=== PATIENT | female | born 1950 | race Asian ===

== ENCOUNTER 2017-05-19 06:44 | Day surgery (SDC) | payer OTHER ==
[2017-05-18 18:15] VITALS: BMI 25.3
[~2017-05-19 06:44] MED LIST: ACETAMINOPHEN 325 MG TABLET (FP) PO PRN; CIPROFLOXACIN HCL 0.3% OPHTH 2.5ML BOTTLE OP SCH; CYCLOPENTOLATE HCL 1% OPHTH SOLN 2 ML BOTTLE OP SCH; FLURBIPROFEN 0.03% OPHTH SOLN 2.5 ML BOTTLE OP SCH; PHENYLEPHRINE 2.5% OPHTH SOLN 15 ML BOTTLE OP SCH; TROPICAMIDE 1% OPHTH SOLN 15 ML BOTTLE OP SCH
[2017-05-19] MEDS ORDERED: PHENYLEPHRINE 2.5% OPHTH SOLN 15 ML BOTTLE OD ONE ×3 (06:55→07:05)
[2017-05-19] MEDS ORDERED: CYCLOPENTOLATE HCL 1% OPHTH SOLN 2 ML BOTTLE OD ONE ×3 (06:55→07:05)
[2017-05-19] MEDS ORDERED: FLURBIPROFEN 0.03% OPHTH SOLN 2.5 ML BOTTLE OD ONE ×3 (06:55→07:05)
[2017-05-19] MEDS ORDERED: TROPICAMIDE 1% OPHTH SOLN 15 ML BOTTLE OD ONE ×3 (06:55→07:05)
[2017-05-19] MEDS ORDERED: CIPROFLOXACIN HCL 0.3% OPHTH 2.5ML BOTTLE OD ONE ×3 (06:55→07:05)
[2017-05-19 07:00] VITALS: TEMP 97.5
[2017-05-19] MEDS ORDERED: EPINEPHrine/PF 1 MG/1 ML (1:1,000) AMPULE ONE (07:40)
[2017-05-19] MEDS ORDERED: VANCOMYCIN 500 MG VIAL (RESTRICTED TO ID ONLY) ONE (07:40)
[2017-05-19] MEDS ORDERED: LIDOCAINE HCL/PF 1% SDV 5ML VIAL ONE (07:41)
[2017-05-19] MEDS ORDERED: BSS (NA/CA/MG/K) BALANCED SALT SOLUTION OPHTH SOLN 15 ML BOTTLE ONE (07:41)
[2017-05-19] MEDS ORDERED: TETRACAINE 0.5% OPHTH SOLN 2 ML BOTTLE ONE (07:41)
[2017-05-19] MEDS ORDERED: WATER FOR INJ,STERILE 10 ML ONE (07:41)
[2017-05-19] MEDS ORDERED: POVIDONE-IODINE 5% OPHTHALMIC PREP 30 ML SOLUTION ONE (07:42)
[2017-05-19] MEDS ORDERED: MIDAZOLAM HCL 2 MG/2 ML SINGLE DOSE VIAL ONE (08:14)
[2017-05-19] MEDS ORDERED: TETRACAINE 0.5% OPHTH SOLN 2 ML BOTTLE OD ONE (08:17)
[2017-05-19] MEDS ORDERED: POVIDONE-IODINE 5% OPHTHALMIC PREP 30 ML SOLUTION OD ONE (08:20)
[2017-05-19] MEDS ORDERED: CHONDROITIN SU A/HYALUR SOD 1 KIT IO ONE (08:33)
[2017-05-19] MEDS ORDERED: LIDOCAINE HCL 1% PRESERVATIVE FREE - 30ML VIAL IO ONE (08:33)
[2017-05-19] MEDS ORDERED: BSS (NA/CA/MG/K) BALANCED SALT SOLUTION OPHTH SOLN 15 ML BOTTLE OD ONE (08:33)
[2017-05-19] MEDS ORDERED: EPINEPHrine/PF 1 MG/1 ML (1:1,000) AMPULE IO ONE (08:38)
[2017-05-19 12:26] VITALS: BP 170/79; PULSE 60
--- NOTE | 2017-05-19 17:08 | SPEC ---
DATE OF OPERATION: OPERATION: Phacoemulsification with posterior chamber intraocular lens implantation, right eye. Lens used SN60WF, 23.5 Diopter power, Serial No. [id number]. PREOPERATIVE DIAGNOSIS: Cataract, right eye. POSTOPERATIVE DIAGNOSIS: Cataract, right eye. SURGEON: Getachew Harrell M.D. ANESTHESIA: Topical MAC. COMPLICATIONS: None. PROCEDURE: The patient was brought to the operating room and correctly identified along with the operative site and the correct intraocular lens gupta. The patient was then prepped and draped in the usual sterile fashion including 5% Betadine solution in the conjunctival sac and an eyelid drape. An eyelid speculum was then placed in the eye. A paracentesis port was created and approximately 0.5 mL of preservative free Lidocaine was then injected into the eye. Viscoelastic was then injected to inflate the anterior chamber. A temporal clear corneal wound was created. A continuous circular capsulorrhexis was performed. The nucleus was then hydrodissected with BSS and removed with phacoemulsification. The remaining cortical material was irrigated and aspirated. Viscoelastic was injected to inflate the capsular bag and the intraocular lens was then implanted into the capsular bag. The remaining Viscoelastic was irrigated and aspirated from the eye. The IOL was noted to be well centered and completely covered by the anterior capsulorrhexis. Topical vancomycin was placed and the eye patched and shielded. All wounds were tested and found to be watertight. No suture was placed. The eye was then shielded. The patient was then discharged from the operating room in stable condition. Concepción [id number]
== END 2017-05-19 10:10 | disposition home or self-care (01) ==
LOC: JASU-SURG 06:44
PROVIDERS: ATTEND Ophthalmology
PROC: 08RJ3JZ Replacement of Right Lens with Synthetic Substitute, Percutaneous Approach (ICD-10-PCS; principal; 2017-05-19 08:00)
DX: H26.9 Unspecified cataract (principal)

== ENCOUNTER 2017-06-02 07:22 | Day surgery (SDC) | payer OTHER ==
[2017-06-01 09:10] VITALS: BMI 25.3
[2017-06-02] MEDS: CIPROFLOXACIN HCL 0.3% OPHTH 2.5ML BOTTLE OP SCH ×3 (07:00→07:29)
[2017-06-02] MEDS: CYCLOPENTOLATE HCL 1% OPHTH SOLN 2 ML BOTTLE OP SCH ×3 (07:00→07:30)
[2017-06-02] MEDS: FLURBIPROFEN 0.03% OPHTH SOLN 2.5 ML BOTTLE OP SCH ×3 (07:00→07:30)
[2017-06-02] MEDS: PHENYLEPHRINE 2.5% OPHTH SOLN 15 ML BOTTLE OP SCH ×3 (07:00→07:30)
[2017-06-02] MEDS: TROPICAMIDE 1% OPHTH SOLN 15 ML BOTTLE OP SCH ×3 (07:00→07:30)
[2017-06-02 07:12] VITALS: TEMP 97.3
[~2017-06-02 07:22] MED LIST changes: -CIPROFLOXACIN HCL 0.3% OPHTH 2.5ML BOTTLE OP SCH; -CYCLOPENTOLATE HCL 1% OPHTH SOLN 2 ML BOTTLE OP SCH; -FLURBIPROFEN 0.03% OPHTH SOLN 2.5 ML BOTTLE OP SCH; -PHENYLEPHRINE 2.5% OPHTH SOLN 15 ML BOTTLE OP SCH; -TROPICAMIDE 1% OPHTH SOLN 15 ML BOTTLE OP SCH
[2017-06-02] MEDS ORDERED: LIDOCAINE HCL/PF 1% SDV 5ML VIAL ONE (07:46)
[2017-06-02] MEDS ORDERED: TETRACAINE 0.5% OPHTH SOLN 2 ML BOTTLE ONE (07:46)
[2017-06-02] MEDS ORDERED: EPINEPHrine/PF 1 MG/1 ML (1:1,000) AMPULE ONE (07:46)
[2017-06-02] MEDS ORDERED: VANCOMYCIN 500 MG VIAL (RESTRICTED TO ID ONLY) ONE (07:46)
[2017-06-02] MEDS ORDERED: WATER FOR INJ,STERILE 10 ML ONE (07:47)
[2017-06-02] MEDS ORDERED: BSS (NA/CA/MG/K) BALANCED SALT SOLUTION OPHTH SOLN 15 ML BOTTLE ONE (07:47)
[2017-06-02] MEDS ORDERED: POVIDONE-IODINE 5% OPHTHALMIC PREP 30 ML SOLUTION ONE (07:47)
[2017-06-02] MEDS ORDERED: MIDAZOLAM HCL 2 MG/2 ML SINGLE DOSE VIAL ONE (07:57)
[2017-06-02] MEDS ORDERED: TETRACAINE 0.5% OPHTH SOLN 2 ML BOTTLE OS ONE (08:09)
[2017-06-02] MEDS ORDERED: POVIDONE-IODINE 5% OPHTHALMIC PREP 30 ML SOLUTION OS ONE (08:14)
[2017-06-02] MEDS ORDERED: BSS (NA/CA/MG/K) BALANCED SALT SOLUTION OPHTH SOLN 15 ML BOTTLE OS ONE (08:23)
[2017-06-02] MEDS ORDERED: LIDOCAINE HCL 1% PRESERVATIVE FREE - 30ML VIAL IO ONE (08:23)
[2017-06-02] MEDS ORDERED: CHONDROITIN SU A/HYALUR SOD 1 KIT IO ONE (08:23)
[2017-06-02] MEDS ORDERED: EPINEPHrine/PF 1 MG/1 ML (1:1,000) AMPULE IO ONE (08:30)
[2017-06-02] MEDS ORDERED: ACETAMINOPHEN 325 MG TABLET (FP) ONE (09:30)
[2017-06-02 10:03] VITALS: BP 155/79; PULSE 60
--- NOTE | 2017-06-03 06:45 | SPEC ---
DATE OF OPERATION: 06/02/2017 PREOPERATIVE DIAGNOSIS: Cataract, left eye. POSTOPERATIVE DIAGNOSIS: Cataract, left eye. PROCEDURE: Phacoemulsification of left cataract with posterior chamber intraocular lens implantation. Lens used SN60WF, 24.0 diopter power, serial No.[id number]. SURGEON: Gege Tucker M.D. ANESTHESIA: Topical MAC. COMPLICATIONS: None. DESCRIPTION OF PROCEDURE: The patient was brought to the operating room and correctly identified along with the operative site and the correct intraocular lens gupta. The patient was then prepped and draped in the usual sterile fashion including 5% Betadine solution in the conjunctival sac and an eyelid drape. An eyelid speculum was then placed in the eye. A paracentesis port was created and approximately 0.5 mL of preservative free Lidocaine was then injected into the eye. Viscoelastic was then injected to inflate the anterior chamber. A temporal clear corneal wound was created. A continuous circular capsulorrhexis was performed. The nucleus was then hydrodissected with BSS and removed with phacoemulsification. The remaining cortical material was irrigated and aspirated. Viscoelastic was injected to inflate the capsular bag and the intraocular lens was then implanted into the capsular bag. The remaining Viscoelastic was irrigated and aspirated from the eye. The IOL was noted to be well centered and completely covered by the anterior capsulorrhexis. Topical vancomycin was placed and the eye patched and shielded. All wounds were tested and found to be watertight. No suture was placed. The eye was then shielded. The patient was then discharged from the operating room in stable condition. GEGE TUCKER M.D. [id number]
== END 2017-06-02 10:03 | disposition home or self-care (01) ==
LOC: JASU-SURG 07:22
PROVIDERS: ATTEND Ophthalmology
PROC: 08RK3JZ Replacement of Left Lens with Synthetic Substitute, Percutaneous Approach (ICD-10-PCS; principal; 2017-06-02 08:00)
DX: H26.9 Unspecified cataract (principal)

== ENCOUNTER 2022-02-03 11:10 | Inpatient (IN) | payer OTHER ==
[2022-02-03 11:21] VITALS: BMI 29.1
[2022-02-03] MEDS ORDERED: SODIUM CHLORIDE 0.9% 500 ML INFUS.BAG IV ONE (12:46)
[2022-02-03] MEDS ORDERED: KETOROLAC TROMETHAMINE 30 MG/1 ML VIAL IVPB ONE (12:46)
[2022-02-03] MEDS ORDERED: ONDANSETRON 4 MG/2 ML VIAL IVPUSH ONE (12:46)
[2022-02-03] MEDS ORDERED: morphine CARPU-JECT 4 MG/1 ML DISP.SYRIN IVPUSH ONE (12:46)
[2022-02-03] MEDS ORDERED: ONDANSETRON 4 MG/2 ML VIAL ONE (13:15)
[2022-02-03] MEDS ORDERED: KETOROLAC TROMETHAMINE 30 MG/1 ML VIAL ONE (13:17)
[2022-02-03 14:02] LABS: BASO % 0.3 % (0-2.0); EOS % 0.5 % (0-4.5); HEMATOCRIT 43.4 % (32.4-45.2); HEMOGLOBIN 14.3 GM/dL (10.7-15.3); LYMPH % 12.1 % (8-40); MCH 27.7 pg (25.7-33.7); MCHC 33.1 g/dl (32.0-36.0); MEAN CELL VOLUME 83.8 fl (80-96); MEAN PLT VOLUME 7.8 fl (7.5-11.1); MONO % 5.6 % (3.8-10.2); NEUT % 81.5 % (42.8-82.8); PLATELET COUNT 316 10^3/uL (134-434); RBC 5.18 M/mm3 (3.60-5.2)
[2022-02-03 14:09] LABS: INR 0.94 (0.83-1.09); PROTHROMBIN TIME (PATIENT) 10.8 SEC (9.7-13.0)
[2022-02-03 14:12] LABS: ACTIVATED PTT 27.3 SECONDS (25.2-36.5)
[2022-02-03] MEDS ORDERED: morphine SULFATE 4 MG/ML VIAL ONE (14:20)
[2022-02-03 14:22] LABS: CALCIUM 9.6 mg/dL (8.5-10.1)
[2022-02-03 14:23] LABS: ALBUMIN 3.8 g/dl (3.4-5.0); BLOOD UREA NITROGEN 32.2 mg/dL (7-18)
[2022-02-03 14:26] LABS: CREATININE 0.6 mg/dL (0.55-1.3)
[2022-02-03 14:28] LABS: BILIRUBIN,TOTAL 0.5 mg/dL (0.2-1); TOT PROT 7.6 g/dl (6.4-8.2)
[2022-02-03 16:58] LABS: EPI CELLS 6 /uL (0-25.1); HYALINE CASTS 4 /uL (0-3.1); PH,URINE 5.5 (5.0-8.0); URINE APPEARANCE CLOUDY; URINE BACTERIA 8 /uL (0-1359); URINE BILIRUBIN NEGATIVE (NEGATIVE); URINE COLOR YELLOW; URINE GLUCOSE (UA) NEGATIVE (NEGATIVE); URINE KETONE 1+ (NEGATIVE); URINE LEUK ESTERASE NEGATIVE (NEGATIVE); URINE NITRITE NEGATIVE (NEGATIVE); URINE PROTEIN 1+ (NEGATIVE); URINE RBC 32 /uL (0-23.9); URINE UROBILINOGEN 0.2 mg/dL (0.2-1.0); URINE WBC 19 /uL (0-25.8)
[2022-02-03] MEDS ORDERED: diazePAM CARPU-JECT 10 MG/2 ML DISP.SYRIN IVPUSH ONE (17:10)
[2022-02-03] MEDS ORDERED: LIDOCAINE HCL 5% TOP OINTMENT 50 GM TUBE TP ONE (17:11)
[2022-02-03] MEDS ORDERED: LIDOCAINE 5% TOPICAL PATCH ONE (17:53)
[2022-02-03] MEDS ORDERED: diazePAM CARPU-JECT 10 MG/2 ML DISP.SYRIN ONE (17:58)
[2022-02-03] MEDS ORDERED: LIDOCAINE 5% TOPICAL PATCH TP ONE (18:09)
[2022-02-03] MEDS ORDERED: DEXAMETHASONE SOD PHOSPHATE 20 MG/5 ML VIAL IVPB ONE (18:18)
[2022-02-03] MEDS ORDERED: DEXAMETHASONE SOD PHOSPHATE 4 MG/1 ML VIAL ONE (18:27)
[2022-02-03] MEDS ORDERED: LIDOCAINE PATCH REMOVAL MC SCH (22:00)
[2022-02-04] MEDS ORDERED: ALBUTEROL SO4 HFA INHALER IH PRN (05:27)
[2022-02-04] MEDS ORDERED: ONDANSETRON 4 MG/2 ML VIAL IVPUSH PRN (05:33)
[2022-02-04] MEDS ORDERED: CYCLOBENZAPRINE HCL 5 MG TABLET PO ONE (05:38)
[2022-02-04] MEDS: KETOROLAC TROMETHAMINE 30 MG/1 ML VIAL IVPB SCH ×4 (06:28→23:45)
[2022-02-04] MEDS: LISINOPRIL 20 MG TABLET PO SCH ×2 (09:23→21:15)
[2022-02-04] MEDS: FAMOTIDINE 10 MG TABLET PO SCH (09:23)
[2022-02-04 09:46] LABS: HEMOGLOBIN 12.3 GM/dL (10.7-15.3); MCH 27.3 pg (25.7-33.7); MCHC 32.4 g/dl (32.0-36.0); MEAN CELL VOLUME 84.3 fl (80-96); PLATELET COUNT 289 10^3/uL (134-434); RBC 4.51 M/mm3 (3.60-5.2); RDW 14.9 % (11.6-15.6); WHITE BLOOD COUNT 5.1 K/mm3 (4.0-10.0)
[2022-02-04] MEDS ORDERED: BUDESONIDE/FORMETEROL FUMARATE 80/4.5 mcg INHALER IH SCH (10:00)
[2022-02-04] MEDS ORDERED: PATIENT'S OWN MEDICATION (NON-FORMULARY) (Ranitidine [Zantac -] 150 MG Tablet) PO SCH (10:00)
[2022-02-04] MEDS ORDERED: TIOTROPIUM BROMIDE 2.5 MCG (SPIRIVA) RESPIMAT INHALER IH SCH (10:00)
[2022-02-04 10:13] LABS: CALCIUM 8.8 mg/dL (8.5-10.1)
[2022-02-04 10:14] LABS: ALBUMIN 3.2 g/dl (3.4-5.0); BLOOD UREA NITROGEN 33.6 mg/dL (7-18); MAGNESIUM 2.3 mg/dL (1.8-2.4)
[2022-02-04 10:16] LABS: PHOSPHOROUS 3.8 mg/dL (2.5-4.9)
[2022-02-04 10:17] LABS: CREATININE 0.6 mg/dL (0.55-1.3)
[2022-02-04 10:18] LABS: BILIRUBIN,TOTAL 0.5 mg/dL (0.2-1); TOT PROT 6.4 g/dl (6.4-8.2)
[2022-02-04] MEDS ORDERED: PATIENT'S OWN MEDICATION (NON-FORMULARY) (Umeclidinium Bromide [Incruse Ellipta] 62.5 MCG IH SCH (15:00)
[2022-02-04] MEDS ORDERED: PATIENT'S OWN MEDICATION (NON-FORMULARY) (Fluticasone/Vilanterol [Breo Ellipta 200-25 Mcg IH SCH (15:00)
[2022-02-04] MEDS: BISACODYL 5 MG TABLET.DR (FP) PO SCH ×2 (18:31→21:15)
[2022-02-04] MEDS: PATIENT'S OWN MEDICATION (NON-FORMULARY) (Fluticasone/Vilanterol [Breo Ellipta 200-25 Mcg IH SCH (18:32)
[2022-02-04] MEDS: PATIENT'S OWN MEDICATION (NON-FORMULARY) (Umeclidinium Bromide [Incruse Ellipta] 62.5 MCG IH SCH (18:32)
[2022-02-04] MEDS: MONTELUKAST NA 10 MG TABLET PO SCH (21:15)
[2022-02-04] MEDS: DIVALPROEX NA *ER* EXTEND REL 250 MG TABLET.SA PO SCH (21:15)
[2022-02-04] MEDS ORDERED: PRAMIPEXOLE DIHYDROCHLORIDE 0.25 MG TABLET PO SCH (22:00)
[2022-02-04] MEDS ORDERED: DOCUSATE SODIUM 100 MG CAPSULE (FP) PO SCH (22:00)
[2022-02-05] MEDS: KETOROLAC TROMETHAMINE 30 MG/1 ML VIAL IVPB SCH ×2 (06:04→14:19)
[2022-02-05] MEDS: FAMOTIDINE 10 MG TABLET PO SCH (09:48)
[2022-02-05] MEDS: LISINOPRIL 20 MG TABLET PO SCH ×2 (09:48→21:35)
[2022-02-05] MEDS: PATIENT'S OWN MEDICATION (NON-FORMULARY) (Umeclidinium Bromide [Incruse Ellipta] 62.5 MCG IH SCH (09:49)
[2022-02-05] MEDS: PATIENT'S OWN MEDICATION (NON-FORMULARY) (Fluticasone/Vilanterol [Breo Ellipta 200-25 Mcg IH SCH (09:50)
[2022-02-05 10:37] LABS: BASO % 0.5 % (0-2.0); EOS % 3.1 % (0-4.5); HEMATOCRIT 39.3 % (32.4-45.2); HEMOGLOBIN 13.1 GM/dL (10.7-15.3); LYMPH % 25.8 % (8-40); MCH 28.1 pg (25.7-33.7); MCHC 33.2 g/dl (32.0-36.0); MEAN CELL VOLUME 84.5 fl (80-96); MEAN PLT VOLUME 7.7 fl (7.5-11.1); MONO % 7.5 % (3.8-10.2); NEUT % 63.1 % (42.8-82.8); PLATELET COUNT 282 10^3/uL (134-434); RBC 4.65 M/mm3 (3.60-5.2); RDW 14.8 % (11.6-15.6); WHITE BLOOD COUNT 6.1 K/mm3 (4.0-10.0)
[2022-02-05 11:05] LABS: CALCIUM 8.9 mg/dL (8.5-10.1)
[2022-02-05 11:06] LABS: ALBUMIN 3.1 g/dl (3.4-5.0); BLOOD UREA NITROGEN 37.1 mg/dL (7-18)
[2022-02-05 11:09] LABS: CREATININE 0.5 mg/dL (0.55-1.3); PHOSPHOROUS 3.3 mg/dL (2.5-4.9)
[2022-02-05 11:10] LABS: BILIRUBIN,TOTAL 0.6 mg/dL (0.2-1)
[2022-02-05 11:11] LABS: TOT PROT 6.6 g/dl (6.4-8.2)
[2022-02-05] MEDS: AMPICILLIN NA/SULBACTAM NA 1.5 GM in SODIUM CHLORIDE 100 ML IVPB SCH ×2 (15:11→21:35)
[2022-02-05] MEDS ORDERED: PRAMIPEXOLE DIHYDROCHLORIDE 0.25 MG TABLET PO SCH ×2 (20:00)
[2022-02-05] MEDS ORDERED: morphine CARPU-JECT 2 MG/1 ML DISP.SYRIN IVPUSH ONE (20:31)
[2022-02-05] MEDS: PRAMIPEXOLE DIHYDROCHLORIDE 0.125 MG TABLET PO SCH (21:34)
[2022-02-05] MEDS: CYCLOBENZAPRINE HCL 5 MG TABLET PO SCH (21:34)
[2022-02-05] MEDS: FAMOTIDINE 20 MG TABLET PO SCH (21:34)
[2022-02-05] MEDS: DIVALPROEX NA *ER* EXTEND REL 250 MG TABLET.SA PO SCH (21:34)
[2022-02-05] MEDS: MONTELUKAST NA 10 MG TABLET PO SCH (21:34)
[2022-02-05] MEDS: BISACODYL 5 MG TABLET.DR (FP) PO SCH (21:35)
[2022-02-05] MEDS ORDERED: PRAMIPEXOLE DIHYDROCHLORIDE 0.5 MG TABLET PO SCH (22:00)
[2022-02-06] MEDS: AMPICILLIN NA/SULBACTAM NA 1.5 GM in SODIUM CHLORIDE 100 ML IVPB SCH ×4 (02:20→21:14)
[2022-02-06 08:05] LABS: HEMOGLOBIN 11.9 GM/dL (10.7-15.3); MCH 27.2 pg (25.7-33.7); MCHC 32.2 g/dl (32.0-36.0); MEAN CELL VOLUME 84.4 fl (80-96); MEAN PLT VOLUME 7.6 fl (7.5-11.1); PLATELET COUNT 286 10^3/uL (134-434); RBC 4.38 M/mm3 (3.60-5.2); RDW 14.6 % (11.6-15.6); WHITE BLOOD COUNT 5.3 K/mm3 (4.0-10.0)
[2022-02-06 08:25] LABS: CALCIUM 8.5 mg/dL (8.5-10.1)
[2022-02-06 08:26] LABS: ALBUMIN 2.8 g/dl (3.4-5.0); BLOOD UREA NITROGEN 27.1 mg/dL (7-18)
[2022-02-06 08:29] LABS: CREATININE 0.5 mg/dL (0.55-1.3); PHOSPHOROUS 3.3 mg/dL (2.5-4.9)
[2022-02-06 08:30] LABS: BILIRUBIN,TOTAL 0.5 mg/dL (0.2-1); TOT PROT 5.8 g/dl (6.4-8.2)
[2022-02-06] MEDS ORDERED: morphine SULFATE 4 MG/ML VIAL IVPUSH PRN ×2 (08:44→16:49)
[2022-02-06] MEDS: FAMOTIDINE 20 MG TABLET PO SCH ×2 (09:26→21:17)
[2022-02-06] MEDS: LISINOPRIL 20 MG TABLET PO SCH ×2 (09:26→21:17)
[2022-02-06] MEDS: PRAMIPEXOLE DIHYDROCHLORIDE 0.125 MG TABLET PO SCH ×2 (09:27→21:19)
[2022-02-06] MEDS: PATIENT'S OWN MEDICATION (NON-FORMULARY) (Umeclidinium Bromide [Incruse Ellipta] 62.5 MCG IH SCH (09:28)
[2022-02-06] MEDS: PATIENT'S OWN MEDICATION (NON-FORMULARY) (Fluticasone/Vilanterol [Breo Ellipta 200-25 Mcg IH SCH (09:28)
[2022-02-06] MEDS ORDERED: ONDANSETRON 4 MG/2 ML VIAL IVPUSH PRN (09:45)
[2022-02-06] MEDS ORDERED: ACETAMINOPHEN 1000 MG/100 ML BAG IVPB PRN ×2 (16:50→17:05)
[2022-02-06] MEDS ORDERED: HYDROmorphone HCl 2 MG/ML VIAL IM PRN (17:04)
[2022-02-06] MEDS ORDERED: hydrOXYzine PAMOATE 25 MG CAPSULE (FP) PO ONE (19:50)
[2022-02-06] MEDS: MONTELUKAST NA 10 MG TABLET PO SCH (21:16)
[2022-02-06] MEDS: DIVALPROEX NA *ER* EXTEND REL 250 MG TABLET.SA PO SCH (21:16)
[2022-02-06] MEDS: CYCLOBENZAPRINE HCL 5 MG TABLET PO SCH (21:16)
[2022-02-06] MEDS: BISACODYL 5 MG TABLET.DR (FP) PO SCH (21:16)
[2022-02-07] MEDS: AMPICILLIN NA/SULBACTAM NA 1.5 GM in SODIUM CHLORIDE 100 ML IVPB SCH ×4 (02:59→21:54)
[2022-02-07] MEDS: oxyCODONE HCL 5 MG TABLET PO PRN (07:06)
[2022-02-07 08:46] LABS: HEMATOCRIT 37.6 % (32.4-45.2); HEMOGLOBIN 12.3 GM/dL (10.7-15.3); MCH 27.3 pg (25.7-33.7); MCHC 32.6 g/dl (32.0-36.0); MEAN CELL VOLUME 83.8 fl (80-96); MEAN PLT VOLUME 7.8 fl (7.5-11.1); PLATELET COUNT 295 10^3/uL (134-434); RBC 4.49 M/mm3 (3.60-5.2); RDW 15.1 % (11.6-15.6)
[2022-02-07] MEDS ORDERED: HYDROmorphone HCl 2 MG/ML VIAL IVPB PRN (08:49)
[2022-02-07 08:59] LABS: CALCIUM 8.5 mg/dL (8.5-10.1)
[2022-02-07 09:00] LABS: BLOOD UREA NITROGEN 22.8 mg/dL (7-18); MAGNESIUM 2.1 mg/dL (1.8-2.4)
[2022-02-07 09:05] LABS: CREATININE 0.5 mg/dL (0.55-1.3)
[2022-02-07 09:07] LABS: BILIRUBIN,TOTAL 0.6 mg/dL (0.2-1); PHOSPHOROUS 3.4 mg/dL (2.5-4.9); TOT PROT 5.9 g/dl (6.4-8.2)
[2022-02-07] MEDS: FAMOTIDINE 20 MG TABLET PO SCH ×2 (09:09→21:55)
[2022-02-07] MEDS: LISINOPRIL 20 MG TABLET PO SCH ×2 (09:09→21:55)
[2022-02-07] MEDS: PRAMIPEXOLE DIHYDROCHLORIDE 0.125 MG TABLET PO SCH ×2 (09:10→21:56)
[2022-02-07] MEDS: PATIENT'S OWN MEDICATION (NON-FORMULARY) (Fluticasone/Vilanterol [Breo Ellipta 200-25 Mcg IH SCH (09:12)
[2022-02-07] MEDS: PATIENT'S OWN MEDICATION (NON-FORMULARY) (Umeclidinium Bromide [Incruse Ellipta] 62.5 MCG IH SCH (09:12)
[2022-02-07] MEDS: MONTELUKAST NA 10 MG TABLET PO SCH (21:54)
[2022-02-07] MEDS: CYCLOBENZAPRINE HCL 5 MG TABLET PO SCH (21:55)
[2022-02-07] MEDS: BISACODYL 5 MG TABLET.DR (FP) PO SCH (21:55)
[2022-02-07] MEDS: DIVALPROEX NA *ER* EXTEND REL 250 MG TABLET.SA PO SCH (21:55)
[2022-02-08] MEDS: AMPICILLIN NA/SULBACTAM NA 1.5 GM in SODIUM CHLORIDE 100 ML IVPB SCH ×4 (02:05→20:56)
[2022-02-08] MEDS: oxyCODONE HCL 5 MG TABLET PO PRN ×3 (02:12→21:09)
[2022-02-08 09:31] LABS: HEMATOCRIT 39.4 % (32.4-45.2); HEMOGLOBIN 12.7 GM/dL (10.7-15.3); MCH 27.1 pg (25.7-33.7); MCHC 32.2 g/dl (32.0-36.0); MEAN CELL VOLUME 84.2 fl (80-96); MEAN PLT VOLUME 7.7 fl (7.5-11.1); PLATELET COUNT 295 10^3/uL (134-434); RBC 4.68 M/mm3 (3.60-5.2); RDW 15.2 % (11.6-15.6); WHITE BLOOD COUNT 5.9 K/mm3 (4.0-10.0)
[2022-02-08] MEDS: FAMOTIDINE 20 MG TABLET PO SCH ×2 (09:53→21:08)
[2022-02-08] MEDS: LISINOPRIL 20 MG TABLET PO SCH ×2 (09:53→21:08)
[2022-02-08] MEDS: PRAMIPEXOLE DIHYDROCHLORIDE 0.125 MG TABLET PO SCH ×2 (09:53→21:08)
[2022-02-08] MEDS: PATIENT'S OWN MEDICATION (NON-FORMULARY) (Umeclidinium Bromide [Incruse Ellipta] 62.5 MCG IH SCH (09:54)
[2022-02-08] MEDS: PATIENT'S OWN MEDICATION (NON-FORMULARY) (Fluticasone/Vilanterol [Breo Ellipta 200-25 Mcg IH SCH (09:55)
[2022-02-08 10:05] LABS: ALBUMIN 3.1 g/dl (3.4-5.0); BLOOD UREA NITROGEN 17.4 mg/dL (7-18); CALCIUM 8.9 mg/dL (8.5-10.1); MAGNESIUM 1.9 mg/dL (1.8-2.4)
[2022-02-08 10:08] LABS: CREATININE 0.5 mg/dL (0.55-1.3); PHOSPHOROUS 3.3 mg/dL (2.5-4.9)
[2022-02-08 10:10] LABS: BILIRUBIN,TOTAL 0.4 mg/dL (0.2-1); TOT PROT 6.4 g/dl (6.4-8.2)
[2022-02-08] MEDS ORDERED: diphenhydrAMINE HCL 25 MG CAPSULE (FP) PO ONE (20:13)
[2022-02-08] MEDS: BISACODYL 5 MG TABLET.DR (FP) PO SCH (21:08)
[2022-02-08] MEDS: CYCLOBENZAPRINE HCL 5 MG TABLET PO SCH (21:08)
[2022-02-08] MEDS: MONTELUKAST NA 10 MG TABLET PO SCH (21:08)
[2022-02-08] MEDS: DIVALPROEX NA *ER* EXTEND REL 250 MG TABLET.SA PO SCH (21:08)
[2022-02-08] MEDS: MINERAL OIL/PET HY-PHL TOPICAL OINTMENT 454 GM JAR TP SCH (21:09)
[2022-02-09] MEDS: AMPICILLIN NA/SULBACTAM NA 1.5 GM in SODIUM CHLORIDE 100 ML IVPB SCH (02:40)
[2022-02-09 08:13] LABS: HEMATOCRIT 36.1 % (32.4-45.2); HEMOGLOBIN 11.9 GM/dL (10.7-15.3); MCH 27.4 pg (25.7-33.7); MCHC 32.9 g/dl (32.0-36.0); MEAN CELL VOLUME 83.4 fl (80-96); MEAN PLT VOLUME 7.8 fl (7.5-11.1); PLATELET COUNT 278 10^3/uL (134-434); RBC 4.33 M/mm3 (3.60-5.2); WHITE BLOOD COUNT 5.4 K/mm3 (4.0-10.0)
[2022-02-09 08:32] LABS: ALBUMIN 2.8 g/dl (3.4-5.0); CALCIUM 8.6 mg/dL (8.5-10.1)
[2022-02-09 08:33] LABS: MAGNESIUM 1.9 mg/dL (1.8-2.4)
[2022-02-09 08:35] LABS: CREATININE 0.6 mg/dL (0.55-1.3); PHOSPHOROUS 3.7 mg/dL (2.5-4.9)
[2022-02-09 08:37] LABS: BILIRUBIN,TOTAL 0.4 mg/dL (0.2-1); TOT PROT 5.9 g/dl (6.4-8.2)
[2022-02-09] MEDS: LISINOPRIL 20 MG TABLET PO SCH ×2 (09:00→22:03)
[2022-02-09] MEDS: FAMOTIDINE 20 MG TABLET PO SCH ×2 (09:00→22:17)
[2022-02-09] MEDS: PRAMIPEXOLE DIHYDROCHLORIDE 0.125 MG TABLET PO SCH ×2 (09:03→22:43)
[2022-02-09] MEDS: PATIENT'S OWN MEDICATION (NON-FORMULARY) (Fluticasone/Vilanterol [Breo Ellipta 200-25 Mcg IH SCH (09:04)
[2022-02-09] MEDS: PATIENT'S OWN MEDICATION (NON-FORMULARY) (Umeclidinium Bromide [Incruse Ellipta] 62.5 MCG IH SCH (09:04)
[2022-02-09] MEDS: MINERAL OIL/PET HY-PHL TOPICAL OINTMENT 454 GM JAR TP SCH (09:05)
[2022-02-09] MEDS: oxyCODONE HCL 5 MG TABLET PO PRN (12:01)
[2022-02-09] MEDS: AMOXICILLIN 500 MG CAPSULE (FP) PO SCH ×2 (14:39→22:02)
[2022-02-09] MEDS: CYCLOBENZAPRINE HCL 5 MG TABLET PO SCH (22:02)
[2022-02-09] MEDS: DIVALPROEX NA *ER* EXTEND REL 250 MG TABLET.SA PO SCH (22:07)
[2022-02-09] MEDS: BISACODYL 5 MG TABLET.DR (FP) PO SCH (22:07)
[2022-02-09] MEDS: MONTELUKAST NA 10 MG TABLET PO SCH (22:08)
[2022-02-09 22:37] VITALS: RESP 20
[2022-02-10] MEDS: oxyCODONE HCL 5 MG TABLET PO PRN ×2 (04:12→18:09)
[2022-02-10] MEDS: AMOXICILLIN 500 MG CAPSULE (FP) PO SCH ×3 (06:52→21:52)
[2022-02-10] MEDS: FAMOTIDINE 20 MG TABLET PO SCH ×2 (09:27→21:53)
[2022-02-10] MEDS: LISINOPRIL 20 MG TABLET PO SCH ×2 (09:27→21:53)
[2022-02-10] MEDS: PRAMIPEXOLE DIHYDROCHLORIDE 0.125 MG TABLET PO SCH ×2 (09:28→21:52)
[2022-02-10] MEDS: PATIENT'S OWN MEDICATION (NON-FORMULARY) (Fluticasone/Vilanterol [Breo Ellipta 200-25 Mcg IH SCH (09:29)
[2022-02-10] MEDS: PATIENT'S OWN MEDICATION (NON-FORMULARY) (Umeclidinium Bromide [Incruse Ellipta] 62.5 MCG IH SCH (09:30)
[2022-02-10] MEDS: MINERAL OIL/PET HY-PHL TOPICAL OINTMENT 454 GM JAR TP SCH (09:30)
[2022-02-10 09:52] LABS: BLOOD UREA NITROGEN 17.4 mg/dL (7-18); CALCIUM 8.7 mg/dL (8.5-10.1)
[2022-02-10 09:54] LABS: CREATININE 0.5 mg/dL (0.55-1.3); PHOSPHOROUS 3.3 mg/dL (2.5-4.9)
[2022-02-10 09:55] LABS: BILIRUBIN,TOTAL 0.4 mg/dL (0.2-1)
[2022-02-10 09:57] LABS: TOT PROT 6.3 g/dl (6.4-8.2)
[2022-02-10] MEDS: CYCLOBENZAPRINE HCL 5 MG TABLET PO SCH (21:52)
[2022-02-10] MEDS: DIVALPROEX NA *ER* EXTEND REL 250 MG TABLET.SA PO SCH (21:53)
[2022-02-10] MEDS: BISACODYL 5 MG TABLET.DR (FP) PO SCH (21:53)
[2022-02-10] MEDS: MONTELUKAST NA 10 MG TABLET PO SCH (21:53)
[2022-02-11] MEDS: AMOXICILLIN 500 MG CAPSULE (FP) PO SCH (06:07)
[2022-02-11 06:15] VITALS: BP 128/69; PULSE 97; TEMP 98.3
[2022-02-11] MEDS ORDERED: GLYCERIN 1 RECTAL SUPPOSITORY, ADULT RC ONE (06:40)
[2022-02-11] MEDS ORDERED: BISACODYL 5 MG TABLET.DR (FP) PO ONE (06:49)
[2022-02-11] MEDS: PATIENT'S OWN MEDICATION (NON-FORMULARY) (Umeclidinium Bromide [Incruse Ellipta] 62.5 MCG IH SCH (10:09)
[2022-02-11] MEDS: PATIENT'S OWN MEDICATION (NON-FORMULARY) (Fluticasone/Vilanterol [Breo Ellipta 200-25 Mcg IH SCH (10:09)
[2022-02-11] MEDS: PRAMIPEXOLE DIHYDROCHLORIDE 0.125 MG TABLET PO SCH (10:10)
[2022-02-11] MEDS: LISINOPRIL 20 MG TABLET PO SCH (10:10)
[2022-02-11] MEDS: FAMOTIDINE 20 MG TABLET PO SCH (10:10)
[2022-02-11] MEDS: MINERAL OIL/PET HY-PHL TOPICAL OINTMENT 454 GM JAR TP SCH (10:11)
== END 2022-02-11 11:44 | disposition home or self-care (01) | DRG 552 ==
LOC: JER 11:10 → JERFT 11:10 → JERBED 18:45 → J7W 02-04 02:00
PROVIDERS: ADMIT Hospitalist; ATTEND Internal Medicine
DX: M54.50 Low back pain, unspecified (principal); N39.0 Urinary tract infection, site not specified; N20.0 Calculus of kidney; K21.9 Gastro-esophageal reflux disease without esophagitis
CPT/HCPCS: 36415; 71046-TC-FY; 72129-TC; 72132-TC; 74176-TC; 80053; 81003; 82550; 83735; 84100; 84484; 85025; 85027; 85610; 85730; 86850; 86900; 86901; 87086; 87186; 93005; 93010; 93971-TC; 97116-GP; 97161-GP; 99285-25; C9803-CS; Q9967; U0003; U0005

== ENCOUNTER 2022-04-10 04:15 | Day surgery (SDC) | payer OTHER ==
[2022-04-08 09:13] VITALS: BMI 31.4
[2022-04-10] MEDS ORDERED: DEXAMETHASONE SOD PHOSPHATE 10 MG/1 ML VIAL ONE (07:24)
[2022-04-10] MEDS ORDERED: LIDOCAINE HCL/PF 1% SDV 5ML VIAL ONE (07:24)
[2022-04-10 10:29] VITALS: RESP 18
[2022-04-10] MEDS ORDERED: SODIUM CHLORIDE 0.9% P/F 10 ML VIAL IJ ONE (12:55)
[2022-04-10] MEDS ORDERED: LIDOCAINE 1% P/F 10 MG/ML VIAL INF ONE (12:57)
[2022-04-10] MEDS ORDERED: IOHEXOL 180 MG/1 ML ML IJ ONE (13:00)
[2022-04-10] MEDS ORDERED: DEXAMETHASONE SOD PHOSPHATE 10 MG/1 ML VIAL IVPUSH ONE (13:01)
[2022-04-10 14:43] VITALS: BP 145/74; PULSE 84; TEMP 97.8
== END 2022-04-10 13:50 | disposition home or self-care (01) ==
LOC: JASU-SURG 04:15
PROVIDERS: ATTEND Pain Medicine Pain Medicine
PROC: 3E0R33Z Introduction of Anti-inflammatory into Spinal Canal, Percutaneous Approach (ICD-10-PCS; 2022-04-10)
PROC: B01BYZZ Fluoroscopy of Spinal Cord using Other Contrast (ICD-10-PCS; 2022-04-10)
PROC: 3E0R3BZ Introduction of Anesthetic Agent into Spinal Canal, Percutaneous Approach (ICD-10-PCS; principal; 2022-04-10 11:45)
DX: M54.16 Radiculopathy, lumbar region (principal)
CPT/HCPCS: 76000-TC-FY; J1100

== ENCOUNTER 2022-05-15 04:09 | Day surgery (SDC) | payer OTHER ==
[2022-05-14 08:26] VITALS: BMI 29.0
[2022-05-15] MEDS ORDERED: LIDOCAINE HCL/PF 1% SDV 5ML VIAL ONE (07:47)
[2022-05-15] MEDS ORDERED: BUPIVACAINE HCL/PF 0.75% 10 ML VIAL ONE (07:47)
[2022-05-15] MEDS ORDERED: LIDOCAINE HCL/PF 2% SDV 5ML VIAL ONE (07:47)
[2022-05-15] MEDS ORDERED: DEXAMETHASONE SOD PHOSPHATE 10 MG/1 ML VIAL ONE (07:48)
[2022-05-15 12:04] VITALS: RESP 20; TEMP 97.8
[2022-05-15 13:14] VITALS: BP 184/84; PULSE 94
== END 2022-05-15 13:00 | disposition short-term general hospital (02) ==
LOC: JASU-SURG 04:09
PROVIDERS: ATTEND Pain Medicine Pain Medicine
DX: Z53.8 Procedure and treatment not carried out for other reasons (principal)
CPT/HCPCS: 76000-TC-FY; J1100

== ENCOUNTER 2022-05-15 13:45 | Inpatient (IN) | payer OTHER ==
[2022-05-15] MEDS ORDERED: ACETAMINOPHEN 1000 MG/100 ML BAG IVPB ONE (14:50)
[2022-05-15] MEDS ORDERED: LACTATED RINGERS SOLUTION 1000 ML INFUS.BAG IV ONE (14:50)
[2022-05-15] MEDS ORDERED: ACETAMINOPHEN INJECTION 100 ML IVPB ONE (14:55)
[2022-05-15] MEDS ORDERED: ONDANSETRON 4 MG/2 ML VIAL IVPUSH ONE ×2 (14:56→21:06)
[2022-05-15] MEDS ORDERED: morphine SULFATE 4 MG/ML VIAL IVPUSH ONE ×2 (14:56→21:02)
[2022-05-15] MEDS ORDERED: ONDANSETRON 4 MG/2 ML VIAL ONE ×2 (15:18→21:06)
[2022-05-15 15:25] LABS: BASO % 1.2 % (0-2.0); HEMOGLOBIN 11.9 GM/dL (10.7-15.3); LYMPH % 31.7 % (8-40); MCH 27.3 pg (25.7-33.7); MCHC 32.2 g/dl (32.0-36.0); MEAN CELL VOLUME 84.6 fl (80-96); MEAN PLT VOLUME 7.6 fl (7.5-11.1); MONO % 9.2 % (3.8-10.2); NEUT % 55.9 % (42.8-82.8); PLATELET COUNT 349 10^3/uL (134-434); RBC 4.38 M/mm3 (3.60-5.2); RDW 15.6 % (11.6-15.6); WHITE BLOOD COUNT 5.4 K/mm3 (4.0-10.0)
[2022-05-15 15:31] LABS: INR 0.9 (0.83-1.09); PROTHROMBIN TIME (PATIENT) 10.3 SEC (9.7-13.0)
[2022-05-15 15:45] LABS: ALBUMIN 3.5 g/dl (3.4-5.0); CALCIUM 9.3 mg/dL (8.5-10.1)
[2022-05-15 15:50] LABS: BILIRUBIN,TOTAL 0.2 mg/dL (0.2-1); TOT PROT 7.2 g/dl (6.4-8.2)
[2022-05-15 15:53] LABS: CREATININE 0.5 mg/dL (0.55-1.3)
[2022-05-15] MEDS ORDERED: TRIMETHOBENZAMIDE HCL 200MG/2ML INJ IM PRN (21:14)
[2022-05-15] MEDS ORDERED: ACETAMINOPHEN 1000 MG/100 ML BAG IVPB PRN (22:21)
[2022-05-15] MEDS ORDERED: LACTATED RINGERS SOLUTION 1,000 ML/1,000 ML INFUS.BAG IV SCH (22:30)
[2022-05-16] MEDS ORDERED: ONDANSETRON 4 MG/2 ML VIAL IVPUSH ONE (06:37)
[2022-05-16] MEDS ORDERED: PATIENT'S OWN MEDICATION (NON-FORMULARY) (Hydrochlorothiazide [Hydrochlorothiazide] 12.5 M PO SCH (10:00)
[2022-05-16 11:04] LABS: BASO % 0.4 % (0-2.0); EOS % 0.8 % (0-4.5); HEMATOCRIT 35.8 % (32.4-45.2); HEMOGLOBIN 11.4 GM/dL (10.7-15.3); LYMPH % 20.1 % (8-40); MCH 26.9 pg (25.7-33.7); MCHC 31.7 g/dl (32.0-36.0); MEAN CELL VOLUME 84.8 fl (80-96); MEAN PLT VOLUME 8.1 fl (7.5-11.1); MONO % 7.5 % (3.8-10.2); NEUT % 71.2 % (42.8-82.8); PLATELET COUNT 354 10^3/uL (134-434); RBC 4.22 M/mm3 (3.60-5.2); RDW 15.3 % (11.6-15.6); WHITE BLOOD COUNT 8.1 K/mm3 (4.0-10.0)
[2022-05-16] MEDS ORDERED: morphine CARPU-JECT 4 MG/1 ML DISP.SYRIN IVPUSH ONE (11:07)
[2022-05-16] MEDS ORDERED: morphine SULFATE 4 MG/ML VIAL IVPUSH ONE (11:09)
[2022-05-16 11:25] LABS: CALCIUM 9.2 mg/dL (8.5-10.1)
[2022-05-16 11:26] LABS: ALBUMIN 3.4 g/dl (3.4-5.0); MAGNESIUM 1.8 mg/dL (1.8-2.4)
[2022-05-16 11:28] LABS: CREATININE 0.5 mg/dL (0.55-1.3); PHOSPHOROUS 3.4 mg/dL (2.5-4.9)
[2022-05-16 11:29] LABS: BILIRUBIN,TOTAL 0.5 mg/dL (0.2-1); TOT PROT 6.8 g/dl (6.4-8.2)
[2022-05-16] MEDS: PRAMIPEXOLE DIHYDROCHLORIDE 0.25 MG TABLET PO SCH ×2 (11:30→21:46)
[2022-05-16] MEDS: DULoxetine HCL 30 MG CAPSULE.DR PO SCH ×2 (11:30→14:38)
[2022-05-16] MEDS: MONTELUKAST NA 10 MG TABLET PO SCH (11:31)
[2022-05-16] MEDS: LISINOPRIL 20 MG TABLET PO SCH ×2 (11:31→21:50)
[2022-05-16] MEDS: FAMOTIDINE 40 MG TABLET PO SCH ×2 (11:31→21:54)
[2022-05-16] MEDS: ONDANSETRON 4 MG/2 ML VIAL IVPUSH PRN ×2 (13:45→21:45)
[2022-05-16] MEDS: GABAPENTIN 300 MG CAPSULE PO SCH ×2 (14:38→21:46)
[2022-05-16] MEDS: DIVALPROEX NA *ER* EXTEND REL 250 MG TABLET.SA PO SCH (21:49)
[2022-05-17 02:51] LABS: EPI CELLS 12 /uL (0-25.1); HYALINE CASTS 1 /uL (0-3.1); URINE APPEARANCE CLEAR; URINE BACTERIA 453 /uL (0-1359); URINE BILIRUBIN NEGATIVE (NEGATIVE); URINE COLOR YELLOW; URINE GLUCOSE (UA) NEGATIVE (NEGATIVE); URINE KETONE 3+ (NEGATIVE); URINE LEUK ESTERASE NEGATIVE (NEGATIVE); URINE NITRITE NEGATIVE (NEGATIVE); URINE PROTEIN TRACE (NEGATIVE); URINE RBC 560 /uL (0-23.9); URINE UROBILINOGEN 0.2 mg/dL (0.2-1.0); URINE WBC 7 /uL (0-25.8)
[2022-05-17] MEDS: GABAPENTIN 300 MG CAPSULE PO SCH ×3 (05:09→22:34)
[2022-05-17] MEDS: ONDANSETRON 4 MG/2 ML VIAL IVPUSH PRN (05:10)
[2022-05-17] MEDS: LISINOPRIL 20 MG TABLET PO SCH ×2 (09:52→22:34)
[2022-05-17] MEDS: PRAMIPEXOLE DIHYDROCHLORIDE 0.25 MG TABLET PO SCH ×2 (09:53→22:33)
[2022-05-17] MEDS: DULoxetine HCL 30 MG CAPSULE.DR PO SCH (09:53)
[2022-05-17] MEDS: MONTELUKAST NA 10 MG TABLET PO SCH (09:53)
[2022-05-17] MEDS: FAMOTIDINE 40 MG TABLET PO SCH ×2 (09:54→22:34)
[2022-05-17 12:22] LABS: HEMATOCRIT 34.2 % (32.4-45.2); HEMOGLOBIN 11.2 GM/dL (10.7-15.3); MCH 27.7 pg (25.7-33.7); MCHC 32.8 g/dl (32.0-36.0); MEAN CELL VOLUME 84.5 fl (80-96); MEAN PLT VOLUME 7.8 fl (7.5-11.1); PLATELET COUNT 332 10^3/uL (134-434); RBC 4.04 M/mm3 (3.60-5.2); RDW 15.3 % (11.6-15.6); WHITE BLOOD COUNT 9.7 K/mm3 (4.0-10.0)
[2022-05-17 12:42] LABS: ALBUMIN 3.3 g/dl (3.4-5.0); CALCIUM 8.9 mg/dL (8.5-10.1); MAGNESIUM 1.8 mg/dL (1.8-2.4)
[2022-05-17 12:45] LABS: CREATININE 0.5 mg/dL (0.55-1.3); PHOSPHOROUS 3.6 mg/dL (2.5-4.9)
[2022-05-17 12:47] LABS: BILIRUBIN,TOTAL 0.6 mg/dL (0.2-1); TOT PROT 6.6 g/dl (6.4-8.2)
[2022-05-17] MEDS: DIVALPROEX NA *ER* EXTEND REL 250 MG TABLET.SA PO SCH (22:33)
[2022-05-18] MEDS: GABAPENTIN 300 MG CAPSULE PO SCH ×3 (06:14→21:54)
[2022-05-18] MEDS ORDERED: ACETAMINOPHEN 325 MG TABLET (FP) PO ONE ×2 (09:39→21:14)
[2022-05-18] MEDS: FAMOTIDINE 40 MG TABLET PO SCH ×2 (09:57→21:53)
[2022-05-18] MEDS: LISINOPRIL 20 MG TABLET PO SCH ×2 (09:57→21:53)
[2022-05-18] MEDS: PRAMIPEXOLE DIHYDROCHLORIDE 0.25 MG TABLET PO SCH ×2 (09:57→21:54)
[2022-05-18] MEDS: MONTELUKAST NA 10 MG TABLET PO SCH (09:58)
[2022-05-18] MEDS ORDERED: amLODIPine BESYLATE 5 MG TABLET (FP) PO SCH (10:00)
[2022-05-18] MEDS: HYDROCHLOROTHIAZIDE 12.5 MG CAPSULE (FP) PO SCH (12:15)
[2022-05-18] MEDS: DULoxetine HCL 30 MG CAPSULE.DR PO SCH (12:15)
[2022-05-18] MEDS ORDERED: HYDROCHLOROTHIAZIDE 12.5 MG CAPSULE (FP) PO ONE (21:16)
[2022-05-18] MEDS: DIVALPROEX NA *ER* EXTEND REL 250 MG TABLET.SA PO SCH (21:53)
[2022-05-19] MEDS: GABAPENTIN 300 MG CAPSULE PO SCH ×3 (06:45→21:29)
[2022-05-19] MEDS ORDERED: TRIAMCINOLONE ACET 40MG/1ML VIAL ONE (08:02)
[2022-05-19] MEDS ORDERED: BUPIVACAINE HCL/PF 0.25% (2.5MG/ML) 10 ML VIAL ONE (08:02)
[2022-05-19] MEDS ORDERED: BUPIVACAINE HCL/PF 0.5% (5MG/ML) 10 ML VIAL ONE (08:03)
[2022-05-19] MEDS ORDERED: LIDOCAINE HCL/PF 1% SDV 5ML VIAL ONE (08:03)
[2022-05-19] MEDS: HYDROCHLOROTHIAZIDE 12.5 MG CAPSULE (FP) PO SCH (09:37)
[2022-05-19] MEDS: DULoxetine HCL 30 MG CAPSULE.DR PO SCH (09:37)
[2022-05-19] MEDS: PRAMIPEXOLE DIHYDROCHLORIDE 0.25 MG TABLET PO SCH ×2 (09:38→21:29)
[2022-05-19] MEDS: FAMOTIDINE 40 MG TABLET PO SCH ×2 (09:38→21:29)
[2022-05-19] MEDS: LISINOPRIL 20 MG TABLET PO SCH ×2 (09:39→21:29)
[2022-05-19] MEDS: MONTELUKAST NA 10 MG TABLET PO SCH (09:39)
[2022-05-19 12:06] LABS: BASO % 0.4 % (0-2.0); EOS % 0.1 % (0-4.5); HEMOGLOBIN 12.1 GM/dL (10.7-15.3); LYMPH % 8.7 % (8-40); MCH 27.1 pg (25.7-33.7); MCHC 31.9 g/dl (32.0-36.0); MEAN PLT VOLUME 8.2 fl (7.5-11.1); MONO % 9.9 % (3.8-10.2); NEUT % 80.9 % (42.8-82.8); PLATELET COUNT 337 10^3/uL (134-434); RBC 4.47 M/mm3 (3.60-5.2); RDW 15.4 % (11.6-15.6); WHITE BLOOD COUNT 12.5 K/mm3 (4.0-10.0)
[2022-05-19 12:43] LABS: BLOOD UREA NITROGEN 19.4 mg/dL (7-18); CALCIUM 8.9 mg/dL (8.5-10.1); MAGNESIUM 2.3 mg/dL (1.8-2.4)
[2022-05-19 12:44] LABS: PHOSPHOROUS 3.6 mg/dL (2.5-4.9)
[2022-05-19 12:46] LABS: CREATININE 0.5 mg/dL (0.55-1.3)
[2022-05-19] MEDS ORDERED: POTASSIUM CHLORIDE TABS 20 MEQ TABLET.ER (FP) PO ONE (14:53)
[2022-05-19] MEDS ORDERED: LIDOCAINE HCL 1% PRESERVATIVE FREE - 30ML VIAL IJ ONE ×3 (15:03)
[2022-05-19] MEDS ORDERED: SODIUM CHLORIDE 1,000 ML IV STA (16:19)
[2022-05-19] MEDS ORDERED: CEFTRIAXONE 2 GM in DEXTROSE 5%-WATER 100 ML IVPB ONE (16:27)
[2022-05-19] MEDS ORDERED: VANCOMYCIN/WATER 1,250 MG/250 ML BAG (RESTRICTED TO ID ONLY) IVPB ONE (16:41)
[2022-05-19] MEDS: ENOXAPARIN NA (PORCINE) 40 MG/0.4 ML DISP.SYRIN SQ SCH (17:23)
[2022-05-19] MEDS: SODIUM CHLORIDE 1,000 ML IV SCH (19:16)
[2022-05-19] MEDS: DIVALPROEX NA *ER* EXTEND REL 250 MG TABLET.SA PO SCH (21:32)
[2022-05-20] MEDS: GABAPENTIN 300 MG CAPSULE PO SCH ×3 (06:24→21:28)
[2022-05-20] MEDS: PRAMIPEXOLE DIHYDROCHLORIDE 0.25 MG TABLET PO SCH ×2 (09:53→21:27)
[2022-05-20] MEDS: ENOXAPARIN NA (PORCINE) 40 MG/0.4 ML DISP.SYRIN SQ SCH (09:53)
[2022-05-20] MEDS: FAMOTIDINE 40 MG TABLET PO SCH ×2 (09:53→21:28)
[2022-05-20] MEDS: MONTELUKAST NA 10 MG TABLET PO SCH (09:53)
[2022-05-20] MEDS: LISINOPRIL 20 MG TABLET PO SCH ×2 (09:53→21:28)
[2022-05-20] MEDS: DULoxetine HCL 30 MG CAPSULE.DR PO SCH (10:05)
[2022-05-20] MEDS: ACETAMINOPHEN 325 MG TABLET (FP) PO PRN ×2 (10:06→20:22)
[2022-05-20 10:57] LABS: BASO % 0.4 % (0-2.0); HEMATOCRIT 36.5 % (32.4-45.2); HEMOGLOBIN 11.8 GM/dL (10.7-15.3); LYMPH % 7.2 % (8-40); MCH 27.3 pg (25.7-33.7); MCHC 32.3 g/dl (32.0-36.0); MEAN CELL VOLUME 84.6 fl (80-96); MEAN PLT VOLUME 8.3 fl (7.5-11.1); MONO % 10.2 % (3.8-10.2); NEUT % 82.2 % (42.8-82.8); PLATELET COUNT 341 10^3/uL (134-434); RBC 4.32 M/mm3 (3.60-5.2); RDW 15.5 % (11.6-15.6); WHITE BLOOD COUNT 11.3 K/mm3 (4.0-10.0)
[2022-05-20 11:16] LABS: CALCIUM 8.8 mg/dL (8.5-10.1)
[2022-05-20 11:17] LABS: ALBUMIN 2.7 g/dl (3.4-5.0); BLOOD UREA NITROGEN 17.2 mg/dL (7-18); MAGNESIUM 2.1 mg/dL (1.8-2.4)
[2022-05-20 11:21] LABS: BILIRUBIN,TOTAL 1.1 mg/dL (0.2-1); CREATININE 0.5 mg/dL (0.55-1.3); PHOSPHOROUS 2.4 mg/dL (2.5-4.9); TOT PROT 6.7 g/dl (6.4-8.2)
[2022-05-20] MEDS ORDERED: PIPERACILLIN/TAZOB 4.5 GM 4.5 GM in DEXTROSE 5%-WATER 100 ML IVPB SCH (13:00)
[2022-05-20] MEDS ORDERED: VANCOMYCIN 1 GM/200 ML PREMIX BAG (RESTRICTED TO ID ONLY) IVPB SCH (14:00)
[2022-05-20] MEDS: VANCOMYCIN 1 GM/200 ML PREMIX BAG (RESTRICTED TO ID ONLY) IVPB SCH (17:47)
[2022-05-20] MEDS: SODIUM CHLORIDE 1,000 ML IV SCH (20:27)
[2022-05-20] MEDS: DIVALPROEX NA *ER* EXTEND REL 250 MG TABLET.SA PO SCH (21:32)
[2022-05-20] MEDS: PIPERACILLIN/TAZOB 4.5 GM 4.5 GM in DEXTROSE 5%-WATER 100 ML IVPB SCH (23:35)
[2022-05-21] MEDS: VANCOMYCIN 1 GM/200 ML PREMIX BAG (RESTRICTED TO ID ONLY) IVPB SCH ×2 (04:35→17:12)
[2022-05-21] MEDS: ACETAMINOPHEN 325 MG TABLET (FP) PO PRN ×2 (05:07→17:11)
[2022-05-21] MEDS: GABAPENTIN 300 MG CAPSULE PO SCH ×3 (06:04→21:28)
[2022-05-21] MEDS: PIPERACILLIN/TAZOB 4.5 GM 4.5 GM in DEXTROSE 5%-WATER 100 ML IVPB SCH ×3 (06:35→22:39)
[2022-05-21 07:53] LABS: BASO % 0.4 % (0-2.0); EOS % 1.2 % (0-4.5); HEMATOCRIT 32.9 % (32.4-45.2); HEMOGLOBIN 10.6 GM/dL (10.7-15.3); LYMPH % 9.9 % (8-40); MCH 27.4 pg (25.7-33.7); MEAN CELL VOLUME 85.5 fl (80-96); MEAN PLT VOLUME 8.3 fl (7.5-11.1); MONO % 13.6 % (3.8-10.2); NEUT % 74.9 % (42.8-82.8); PLATELET COUNT 309 10^3/uL (134-434); RBC 3.85 M/mm3 (3.60-5.2); RDW 15.5 % (11.6-15.6); WHITE BLOOD COUNT 7.2 K/mm3 (4.0-10.0)
[2022-05-21 08:26] LABS: ALBUMIN 2.4 g/dl (3.4-5.0); BLOOD UREA NITROGEN 17.6 mg/dL (7-18)
[2022-05-21 08:28] LABS: CREATININE 0.5 mg/dL (0.55-1.3); PHOSPHOROUS 2.8 mg/dL (2.5-4.9)
[2022-05-21 08:30] LABS: BILIRUBIN,TOTAL 0.5 mg/dL (0.2-1); TOT PROT 5.9 g/dl (6.4-8.2)
[2022-05-21] MEDS: LISINOPRIL 20 MG TABLET PO SCH ×2 (09:56→21:25)
[2022-05-21] MEDS: FAMOTIDINE 40 MG TABLET PO SCH ×2 (09:56→21:28)
[2022-05-21] MEDS: PRAMIPEXOLE DIHYDROCHLORIDE 0.25 MG TABLET PO SCH ×2 (09:56→21:25)
[2022-05-21] MEDS: ENOXAPARIN NA (PORCINE) 40 MG/0.4 ML DISP.SYRIN SQ SCH (09:56)
[2022-05-21] MEDS: DULoxetine HCL 30 MG CAPSULE.DR PO SCH (09:57)
[2022-05-21 10:28] LABS: EPI CELLS 7 /uL (0-25.1); HYALINE CASTS 1 /uL (0-3.1); PH,URINE 5.5 (5.0-8.0); URINE APPEARANCE CLEAR; URINE BACTERIA 2 /uL (0-1359); URINE BILIRUBIN NEGATIVE (NEGATIVE); URINE COLOR YELLOW; URINE GLUCOSE (UA) NEGATIVE (NEGATIVE); URINE KETONE TRACE (NEGATIVE); URINE LEUK ESTERASE NEGATIVE (NEGATIVE); URINE NITRITE NEGATIVE (NEGATIVE); URINE PROTEIN 2+ (NEGATIVE); URINE RBC 545 /uL (0-23.9); URINE WBC 13 /uL (0-25.8)
[2022-05-21] MEDS ORDERED: ALBUTEROL SO4 HFA INHALER IH PRN (12:02)
[2022-05-21] MEDS: KCL 10 MEQ IVPB 10 MEQ/100 ML INFUS.BAG IVPB SCH ×2 (12:05→14:24)
[2022-05-21] MEDS: FLUTICASONE IH SCH (21:24)
[2022-05-21] MEDS: VILANTEROL IH SCH (21:24)
[2022-05-21] MEDS: DIVALPROEX NA *ER* EXTEND REL 250 MG TABLET.SA PO SCH (21:25)
[2022-05-21] MEDS: MONTELUKAST NA 10 MG TABLET PO SCH (21:25)
[2022-05-22] MEDS: VANCOMYCIN 1 GM/200 ML PREMIX BAG (RESTRICTED TO ID ONLY) IVPB SCH ×2 (04:17→19:50)
[2022-05-22] MEDS: GABAPENTIN 300 MG CAPSULE PO SCH ×3 (05:14→21:27)
[2022-05-22] MEDS: ACETAMINOPHEN 325 MG TABLET (FP) PO PRN ×2 (05:14→20:03)
[2022-05-22] MEDS: PIPERACILLIN/TAZOB 4.5 GM 4.5 GM in DEXTROSE 5%-WATER 100 ML IVPB SCH ×3 (06:29→23:12)
[2022-05-22 09:55] LABS: BASO % 0.5 % (0-2.0); EOS % 4.3 % (0-4.5); HEMATOCRIT 31.8 % (32.4-45.2); HEMOGLOBIN 10.2 GM/dL (10.7-15.3); LYMPH % 21.7 % (8-40); MCH 27.3 pg (25.7-33.7); MEAN CELL VOLUME 85.2 fl (80-96); MEAN PLT VOLUME 7.8 fl (7.5-11.1); MONO % 16.2 % (3.8-10.2); NEUT % 57.3 % (42.8-82.8); PLATELET COUNT 322 10^3/uL (134-434); RBC 3.73 M/mm3 (3.60-5.2); RDW 15.3 % (11.6-15.6)
[2022-05-22 10:30] LABS: ALBUMIN 2.4 g/dl (3.4-5.0); BLOOD UREA NITROGEN 12.7 mg/dL (7-18); CALCIUM 8.5 mg/dL (8.5-10.1)
[2022-05-22 10:34] LABS: BILIRUBIN,TOTAL 0.4 mg/dL (0.2-1); CREATININE 0.4 mg/dL (0.55-1.3); PHOSPHOROUS 3.2 mg/dL (2.5-4.9); TOT PROT 6.2 g/dl (6.4-8.2)
[2022-05-22 10:36] LABS: ERYTHROCYTE SEDIMENTATION RATE 94 mm/hr (0-30)
[2022-05-22] MEDS: LISINOPRIL 20 MG TABLET PO SCH ×2 (10:47→21:26)
[2022-05-22] MEDS: PRAMIPEXOLE DIHYDROCHLORIDE 0.25 MG TABLET PO SCH ×2 (10:48→21:26)
[2022-05-22] MEDS: FAMOTIDINE 40 MG TABLET PO SCH ×2 (10:48→21:27)
[2022-05-22] MEDS: ENOXAPARIN NA (PORCINE) 40 MG/0.4 ML DISP.SYRIN SQ SCH (10:50)
[2022-05-22] MEDS: DULoxetine HCL 30 MG CAPSULE.DR PO SCH ×2 (10:50→10:58)
[2022-05-22] MEDS: FLUTICASONE IH SCH (10:52)
[2022-05-22] MEDS: VILANTEROL IH SCH (10:52)
[2022-05-22] MEDS: KCL 10 MEQ IVPB 10 MEQ/100 ML INFUS.BAG IVPB SCH ×2 (16:30→17:51)
[2022-05-22] MEDS: VANCOMYCIN/WATER FOR INJ (PEG) 1,000 MG/200 ML BAG IVPB SCH (20:03)
[2022-05-22] MEDS: MONTELUKAST NA 10 MG TABLET PO SCH (21:27)
[2022-05-22] MEDS: DIVALPROEX NA *ER* EXTEND REL 250 MG TABLET.SA PO SCH (21:27)
[2022-05-23] MEDS: GABAPENTIN 300 MG CAPSULE PO SCH ×3 (05:59→21:46)
[2022-05-23] MEDS: PIPERACILLIN/TAZOB 4.5 GM 4.5 GM in DEXTROSE 5%-WATER 100 ML IVPB SCH ×4 (06:40→23:54)
[2022-05-23] MEDS: ENOXAPARIN NA (PORCINE) 40 MG/0.4 ML DISP.SYRIN SQ SCH (09:24)
[2022-05-23] MEDS: FAMOTIDINE 40 MG TABLET PO SCH ×2 (09:24→21:47)
[2022-05-23] MEDS: VANCOMYCIN/WATER FOR INJ (PEG) 1,000 MG/200 ML BAG IVPB SCH ×2 (09:24→21:52)
[2022-05-23] MEDS: LISINOPRIL 20 MG TABLET PO SCH ×2 (09:24→21:47)
[2022-05-23] MEDS: PRAMIPEXOLE DIHYDROCHLORIDE 0.25 MG TABLET PO SCH ×2 (09:30→21:47)
[2022-05-23] MEDS: DULoxetine HCL 30 MG CAPSULE.DR PO SCH (09:37)
[2022-05-23] MEDS: FLUTICASONE IH SCH (09:40)
[2022-05-23] MEDS: VILANTEROL IH SCH (09:40)
[2022-05-23 10:02] LABS: BASO % 0.5 % (0-2.0); EOS % 5.5 % (0-4.5); HEMATOCRIT 30.6 % (32.4-45.2); LYMPH % 19.4 % (8-40); MCH 27.8 pg (25.7-33.7); MCHC 32.8 g/dl (32.0-36.0); MEAN CELL VOLUME 84.9 fl (80-96); MONO % 13.4 % (3.8-10.2); NEUT % 61.2 % (42.8-82.8); PLATELET COUNT 344 10^3/uL (134-434); RDW 15.2 % (11.6-15.6); WHITE BLOOD COUNT 4.8 K/mm3 (4.0-10.0)
[2022-05-23 10:36] LABS: CALCIUM 8.6 mg/dL (8.5-10.1)
[2022-05-23 10:37] LABS: ALBUMIN 2.3 g/dl (3.4-5.0); BLOOD UREA NITROGEN 10.3 mg/dL (7-18)
[2022-05-23 10:40] LABS: CREATININE 0.4 mg/dL (0.55-1.3)
[2022-05-23 10:41] LABS: BILIRUBIN,TOTAL 0.3 mg/dL (0.2-1); PHOSPHOROUS 3.1 mg/dL (2.5-4.9); TOT PROT 5.8 g/dl (6.4-8.2)
[2022-05-23] MEDS ORDERED: POTASSIUM CHLORIDE TABS 20 MEQ TABLET.ER (FP) PO ONE ×2 (14:24→20:00)
[2022-05-23] MEDS: ACETAMINOPHEN 325 MG TABLET (FP) PO PRN (17:52)
[2022-05-23] MEDS: MONTELUKAST NA 10 MG TABLET PO SCH (21:47)
[2022-05-23] MEDS: DIVALPROEX NA *ER* EXTEND REL 250 MG TABLET.SA PO SCH (21:47)
[2022-05-24] MEDS: GABAPENTIN 300 MG CAPSULE PO SCH ×3 (06:17→21:42)
[2022-05-24] MEDS: PIPERACILLIN/TAZOB 4.5 GM 4.5 GM in DEXTROSE 5%-WATER 100 ML IVPB SCH ×2 (06:18→14:12)
[2022-05-24] MEDS: LISINOPRIL 20 MG TABLET PO SCH ×2 (09:09→21:42)
[2022-05-24] MEDS: VANCOMYCIN/WATER FOR INJ (PEG) 1,000 MG/200 ML BAG IVPB SCH (09:09)
[2022-05-24] MEDS: PRAMIPEXOLE DIHYDROCHLORIDE 0.25 MG TABLET PO SCH ×2 (09:10→22:49)
[2022-05-24] MEDS: DIVALPROEX NA *ER* EXTEND REL 250 MG TABLET.SA PO SCH (09:10)
[2022-05-24] MEDS: ENOXAPARIN NA (PORCINE) 40 MG/0.4 ML DISP.SYRIN SQ SCH (09:10)
[2022-05-24] MEDS: FLUTICASONE IH SCH (09:10)
[2022-05-24] MEDS: FAMOTIDINE 40 MG TABLET PO SCH ×2 (09:10→22:49)
[2022-05-24] MEDS: VILANTEROL IH SCH (09:10)
[2022-05-24 10:17] LABS: BASO % 0.5 % (0-2.0); EOS % 6.2 % (0-4.5); HEMATOCRIT 31.8 % (32.4-45.2); HEMOGLOBIN 10.1 GM/dL (10.7-15.3); LYMPH % 25.2 % (8-40); MCH 27.2 pg (25.7-33.7); MCHC 31.9 g/dl (32.0-36.0); MEAN CELL VOLUME 85.5 fl (80-96); MONO % 13.4 % (3.8-10.2); NEUT % 54.7 % (42.8-82.8); PLATELET COUNT 383 10^3/uL (134-434); RBC 3.72 M/mm3 (3.60-5.2); RDW 15.6 % (11.6-15.6); WHITE BLOOD COUNT 4.6 K/mm3 (4.0-10.0)
[2022-05-24 10:47] LABS: BLOOD UREA NITROGEN 9.2 mg/dL (7-18)
[2022-05-24 10:48] LABS: CALCIUM 8.7 mg/dL (8.5-10.1)
[2022-05-24 10:49] LABS: ALBUMIN 2.5 g/dl (3.4-5.0); MAGNESIUM 2.2 mg/dL (1.8-2.4)
[2022-05-24 10:50] LABS: BILIRUBIN,TOTAL 0.5 mg/dL (0.2-1); TOT PROT 6.1 g/dl (6.4-8.2)
[2022-05-24 10:51] LABS: CREATININE 0.4 mg/dL (0.55-1.3)
[2022-05-24] MEDS: MONTELUKAST NA 10 MG TABLET PO SCH (22:49)
[2022-05-25] MEDS: GABAPENTIN 300 MG CAPSULE PO SCH ×3 (05:59→22:03)
[2022-05-25 10:01] LABS: BASO % 0.4 % (0-2.0); EOS % 5.8 % (0-4.5); HEMATOCRIT 35.2 % (32.4-45.2); HEMOGLOBIN 11.2 GM/dL (10.7-15.3); LYMPH % 29.2 % (8-40); MEAN CELL VOLUME 84.6 fl (80-96); MEAN PLT VOLUME 7.6 fl (7.5-11.1); MONO % 9.2 % (3.8-10.2); NEUT % 55.4 % (42.8-82.8); PLATELET COUNT 470 10^3/uL (134-434); RBC 4.16 M/mm3 (3.60-5.2); RDW 15.3 % (11.6-15.6); WHITE BLOOD COUNT 4.6 K/mm3 (4.0-10.0)
[2022-05-25 10:50] LABS: CALCIUM 9.3 mg/dL (8.5-10.1)
[2022-05-25 10:51] LABS: ALBUMIN 2.8 g/dl (3.4-5.0); BLOOD UREA NITROGEN 11.4 mg/dL (7-18); MAGNESIUM 2.1 mg/dL (1.8-2.4)
[2022-05-25 10:53] LABS: PHOSPHOROUS 3.1 mg/dL (2.5-4.9)
[2022-05-25 10:55] LABS: BILIRUBIN,TOTAL 0.2 mg/dL (0.2-1); TOT PROT 6.8 g/dl (6.4-8.2)
[2022-05-25 10:56] LABS: CREATININE 0.5 mg/dL (0.55-1.3)
[2022-05-25] MEDS: DIVALPROEX NA *ER* EXTEND REL 250 MG TABLET.SA PO SCH (11:06)
[2022-05-25] MEDS: ENOXAPARIN NA (PORCINE) 40 MG/0.4 ML DISP.SYRIN SQ SCH (11:06)
[2022-05-25] MEDS: PRAMIPEXOLE DIHYDROCHLORIDE 0.25 MG TABLET PO SCH ×2 (11:07→23:02)
[2022-05-25] MEDS: LISINOPRIL 20 MG TABLET PO SCH ×2 (11:07→22:03)
[2022-05-25] MEDS: FAMOTIDINE 40 MG TABLET PO SCH ×2 (11:07→22:04)
[2022-05-25] MEDS: FLUTICASONE IH SCH ×2 (11:10→14:18)
[2022-05-25] MEDS: VILANTEROL IH SCH ×2 (11:10→14:18)
[2022-05-25] MEDS: MONTELUKAST NA 10 MG TABLET PO SCH (22:03)
[2022-05-26] MEDS: GABAPENTIN 300 MG CAPSULE PO SCH ×3 (06:06→22:02)
[2022-05-26 08:46] LABS: BASO % 0.3 % (0-2.0); EOS % 2.9 % (0-4.5); HEMATOCRIT 34.8 % (32.4-45.2); HEMOGLOBIN 11.2 GM/dL (10.7-15.3); LYMPH % 20.1 % (8-40); MCH 27.3 pg (25.7-33.7); MCHC 32.1 g/dl (32.0-36.0); MEAN PLT VOLUME 7.7 fl (7.5-11.1); MONO % 8.9 % (3.8-10.2); NEUT % 67.8 % (42.8-82.8); PLATELET COUNT 502 10^3/uL (134-434); RBC 4.09 M/mm3 (3.60-5.2); RDW 15.4 % (11.6-15.6); WHITE BLOOD COUNT 7.7 K/mm3 (4.0-10.0)
[2022-05-26 09:12] LABS: ALBUMIN 2.7 g/dl (3.4-5.0); BLOOD UREA NITROGEN 14.6 mg/dL (7-18); CALCIUM 8.9 mg/dL (8.5-10.1); MAGNESIUM 2.2 mg/dL (1.8-2.4)
[2022-05-26 09:15] LABS: CREATININE 0.4 mg/dL (0.55-1.3); PHOSPHOROUS 4.1 mg/dL (2.5-4.9)
[2022-05-26 09:17] LABS: BILIRUBIN,TOTAL 0.2 mg/dL (0.2-1); TOT PROT 6.8 g/dl (6.4-8.2)
[2022-05-26] MEDS: PRAMIPEXOLE DIHYDROCHLORIDE 0.25 MG TABLET PO SCH ×2 (09:32→22:01)
[2022-05-26] MEDS: LISINOPRIL 20 MG TABLET PO SCH ×2 (09:33→22:02)
[2022-05-26] MEDS: FAMOTIDINE 40 MG TABLET PO SCH ×2 (09:33→22:02)
[2022-05-26] MEDS: DIVALPROEX NA *ER* EXTEND REL 250 MG TABLET.SA PO SCH (09:33)
[2022-05-26] MEDS: ENOXAPARIN NA (PORCINE) 40 MG/0.4 ML DISP.SYRIN SQ SCH (09:33)
[2022-05-26] MEDS: FLUTICASONE IH SCH (09:34)
[2022-05-26] MEDS: VILANTEROL IH SCH (09:34)
[2022-05-26] MEDS ORDERED: VANCOMYCIN 1 GM in D5W (PRE-DOCKED) 1,000 MG/250 ML IVPB SCH (18:30)
[2022-05-26] MEDS ORDERED: PIPERACILLIN/TAZOB 4.5 GM 4.5 GM in DEXTROSE 5%-WATER 100 ML IVPB SCH (18:30)
[2022-05-26] MEDS: MONTELUKAST NA 10 MG TABLET PO SCH (22:02)
[2022-05-27] MEDS: GABAPENTIN 300 MG CAPSULE PO SCH ×3 (05:48→21:11)
[2022-05-27] MEDS ORDERED: ALBUTEROL SO4 2.5/IPRATROPIUM 0.5 INH SOL 3 ML VIAL.NEB. NEB PRN (08:02)
[2022-05-27] MEDS ORDERED: REMDESIVIR 200 MG in SODIUM CHLORIDE 250 ML IVPB ONE ×3 (09:00→21:00)
[2022-05-27] MEDS: LISINOPRIL 20 MG TABLET PO SCH ×2 (09:10→21:12)
[2022-05-27] MEDS: DIVALPROEX NA *ER* EXTEND REL 250 MG TABLET.SA PO SCH (09:10)
[2022-05-27] MEDS: FAMOTIDINE 40 MG TABLET PO SCH ×2 (09:11→21:12)
[2022-05-27] MEDS: ENOXAPARIN NA (PORCINE) 40 MG/0.4 ML DISP.SYRIN SQ SCH (09:12)
[2022-05-27] MEDS: PRAMIPEXOLE DIHYDROCHLORIDE 0.25 MG TABLET PO SCH ×2 (09:12→21:12)
[2022-05-27] MEDS: VILANTEROL IH SCH (09:17)
[2022-05-27] MEDS: FLUTICASONE IH SCH (09:17)
[2022-05-27 09:26] LABS: CALCIUM 8.9 mg/dL (8.5-10.1)
[2022-05-27 09:27] LABS: ALBUMIN 2.8 g/dl (3.4-5.0)
[2022-05-27 09:30] LABS: CREATININE 0.5 mg/dL (0.55-1.3)
[2022-05-27 09:32] LABS: BILIRUBIN,TOTAL 0.3 mg/dL (0.2-1); TOT PROT 6.9 g/dl (6.4-8.2)
[2022-05-27 09:33] LABS: HEMATOCRIT 34.4 % (32.4-45.2); HEMOGLOBIN 11.2 GM/dL (10.7-15.3); MCH 27.3 pg (25.7-33.7); MCHC 32.5 g/dl (32.0-36.0); MEAN CELL VOLUME 83.9 fl (80-96); MEAN PLT VOLUME 7.5 fl (7.5-11.1); PLATELET COUNT 546 10^3/uL (134-434); RBC 4.09 M/mm3 (3.60-5.2); RDW 15.2 % (11.6-15.6); WHITE BLOOD COUNT 8.2 K/mm3 (4.0-10.0)
[2022-05-27] MEDS ORDERED: DEXAMETHASONE 4 MG TABLET (FP) PO SCH (10:00)
[2022-05-27 11:25] LABS: ERYTHROCYTE SEDIMENTATION RATE 97 mm/hr (0-30)
[2022-05-27] MEDS: MONTELUKAST NA 10 MG TABLET PO SCH (21:12)
[2022-05-28] MEDS: GABAPENTIN 300 MG CAPSULE PO SCH ×2 (05:53→15:02)
[2022-05-28 09:34] LABS: BASO % 0.3 % (0-2.0); EOS % 0.1 % (0-4.5); HEMATOCRIT 31.8 % (32.4-45.2); HEMOGLOBIN 10.3 GM/dL (10.7-15.3); LYMPH % 23.2 % (8-40); MCH 27.3 pg (25.7-33.7); MCHC 32.6 g/dl (32.0-36.0); MEAN CELL VOLUME 83.7 fl (80-96); MEAN PLT VOLUME 7.6 fl (7.5-11.1); MONO % 12.2 % (3.8-10.2); NEUT % 64.2 % (42.8-82.8); PLATELET COUNT 617 10^3/uL (134-434); RDW 15.2 % (11.6-15.6); WHITE BLOOD COUNT 6.4 K/mm3 (4.0-10.0)
[2022-05-28 09:45] LABS: BLOOD UREA NITROGEN 15.6 mg/dL (7-18); CALCIUM 8.7 mg/dL (8.5-10.1)
[2022-05-28 09:49] LABS: CREATININE 0.4 mg/dL (0.55-1.3)
[2022-05-28] MEDS ORDERED: DEXAMETHASONE SOD PHOSPHATE 4 MG/1 ML VIAL IVPUSH SCH (10:00)
[2022-05-28] MEDS: LISINOPRIL 20 MG TABLET PO SCH (10:52)
[2022-05-28] MEDS: FAMOTIDINE 40 MG TABLET PO SCH (10:52)
[2022-05-28] MEDS: ENOXAPARIN NA (PORCINE) 40 MG/0.4 ML DISP.SYRIN SQ SCH (10:52)
[2022-05-28] MEDS: DIVALPROEX NA *ER* EXTEND REL 250 MG TABLET.SA PO SCH (10:53)
[2022-05-28] MEDS: PRAMIPEXOLE DIHYDROCHLORIDE 0.25 MG TABLET PO SCH (10:53)
[2022-05-28] MEDS: FLUTICASONE IH SCH (11:06)
[2022-05-28] MEDS: VILANTEROL IH SCH (11:06)
[2022-05-28 11:07] VITALS: RESP 20
[2022-05-28] MEDS ORDERED: ALPRAZolam 0.25 MG TABLET PO ONE (11:23)
[2022-05-28 15:59] VITALS: BP 150/92; PULSE 86; TEMP 98.2
== END 2022-05-28 17:58 | disposition short-term general hospital (02) | DRG 871 ==
LOC: JER 13:45 → JERBED 14:48 → J5S 05-16 05:45 → J6S 05-24 13:38
PROVIDERS: ADMIT Internal Medicine; ATTEND Internal Medicine
PROC: 0S9B3ZX Drainage of Left Hip Joint, Percutaneous Approach, Diagnostic (ICD-10-PCS; principal; 2022-05-16)
PROC: 0S9B3ZX Drainage of Left Hip Joint, Percutaneous Approach, Diagnostic (ICD-10-PCS; 2022-05-20)
PROC: XW033E5 Introduction of Remdesivir Anti-infective into Peripheral Vein, Percutaneous Approach, New Technology Group 5 (ICD-10-PCS; 2022-05-27)
DX: A41.89 Other specified sepsis (principal); J18.9 Pneumonia, unspecified organism; U07.1 COVID-19; J96.01 Acute respiratory failure with hypoxia; M87.852 Other osteonecrosis, left femur; M00.9 Pyogenic arthritis, unspecified; J98.11 Atelectasis; J90 Pleural effusion, not elsewhere classified; K21.9 Gastro-esophageal reflux disease without esophagitis; I10 Essential (primary) hypertension; J45.909 Unspecified asthma, uncomplicated; G25.81 Restless legs syndrome; G43.909 Migraine, unspecified, not intractable, without status migrainosus; M25.452 Effusion, left hip; K44.9 Diaphragmatic hernia without obstruction or gangrene; G62.9 Polyneuropathy, unspecified; M16.12 Unilateral primary osteoarthritis, left hip; E87.6 Hypokalemia; R50.9 Fever, unspecified; D72.829 Elevated white blood cell count, unspecified; R26.2 Difficulty in walking, not elsewhere classified; M54.9 Dorsalgia, unspecified; K76.89 Other specified diseases of liver
CPT/HCPCS: 0241U-QW; 10005; 36415; 71045-TC-FY; 71250-TC; 72170-TC-FY; 72192-TC; 73502-TC-LT-FY; 73552-TC-LT-FY; 73720-LT; 76000-TC-FY; 80048; 80053; 81003; 83735; 84100; 85025; 85027; 85610; 85651; 85730; 86140; 86850; 86900; 86901; 87040; 87070; 87075; 87086; 87205; 93005; 93010; 94010; 97116-GP; 97162-GP; 99285-25; C9399; C9803-CS; G0480; U0003; U0005

== ENCOUNTER 2022-07-26 10:39 | Emergency (ER) | payer OTHER ==
[2022-07-26 11:05] VITALS: RESP 18; BMI 27.2
[2022-07-26] MEDS ORDERED: morphine CARPU-JECT 4 MG/1 ML DISP.SYRIN IVPUSH ONE (11:33)
[2022-07-26] MEDS ORDERED: ONDANSETRON 4 MG/2 ML VIAL IVPUSH ONE (11:34)
[2022-07-26] MEDS ORDERED: ACETAMINOPHEN 1000 MG/100 ML BAG IVPB ONE (11:34)
[2022-07-26] MEDS ORDERED: MECLIZINE HCL 25 MG TABLET (FP) PO ONE (11:36)
[2022-07-26] MEDS ORDERED: MECLIZINE HCL 25 MG TABLET (FP) ONE (11:52)
[2022-07-26] MEDS ORDERED: ONDANSETRON 4 MG/2 ML VIAL ONE (11:52)
[2022-07-26] MEDS ORDERED: ACETAMINOPHEN INJECTION 100 ML IVPB ONE (11:52)
[2022-07-26] MEDS ORDERED: morphine SULFATE 4 MG/ML VIAL ONE (11:52)
[2022-07-26 12:31] LABS: BASO % 0.6 % (0-2.0); EOS % 2.6 % (0-4.5); HEMATOCRIT 27.1 % (32.4-45.2); LYMPH % 21.2 % (8-40); MCH 28.6 pg (25.7-33.7); MCHC 33.1 g/dl (32.0-36.0); MEAN CELL VOLUME 86.2 fl (80-96); MEAN PLT VOLUME 6.5 fl (7.5-11.1); MONO % 8.5 % (3.8-10.2); NEUT % 67.1 % (42.8-82.8); PLATELET COUNT 576 10^3/uL (134-434); RBC 3.14 M/mm3 (3.60-5.2); RDW 17.2 % (11.6-15.6); WHITE BLOOD COUNT 6.9 K/mm3 (4.0-10.0)
[2022-07-26 12:38] LABS: INR 0.92 (0.83-1.09); PROTHROMBIN TIME (PATIENT) 10.7 SEC (9.7-13.0)
[2022-07-26 12:57] LABS: CALCIUM 9.2 mg/dL (8.5-10.1)
[2022-07-26 12:58] LABS: ALBUMIN 3.4 g/dl (3.4-5.0); BLOOD UREA NITROGEN 15.5 mg/dL (7-18)
[2022-07-26 13:01] LABS: CREATININE 0.5 mg/dL (0.55-1.3)
[2022-07-26 13:02] LABS: BILIRUBIN,TOTAL 0.2 mg/dL (0.2-1); TOT PROT 7.1 g/dl (6.4-8.2)
[2022-07-26] MEDS ORDERED: KETOROLAC TROMETHAMINE 15 MG/ML VIAL ONE (17:16)
[2022-07-26] MEDS ORDERED: KETOROLAC TROMETHAMINE 15 MG/ML VIAL IVPUSH ONE (17:16)
[2022-07-26 17:31] VITALS: BP 133/69; PULSE 81; TEMP 97.8
== END 2022-07-26 17:50 | disposition home or self-care (01) ==
LOC: JER 10:39
PROC: 3E0333Z Introduction of Anti-inflammatory into Peripheral Vein, Percutaneous Approach (ICD-10-PCS; principal; 2022-07-26)
PROC: 3E0333Z Introduction of Anti-inflammatory into Peripheral Vein, Percutaneous Approach (ICD-10-PCS; 2022-07-26)
PROC: 3E033NZ Introduction of Analgesics, Hypnotics, Sedatives into Peripheral Vein, Percutaneous Approach (ICD-10-PCS; 2022-07-26)
PROC: 3E033GC Introduction of Other Therapeutic Substance into Peripheral Vein, Percutaneous Approach (ICD-10-PCS; 2022-07-26)
DX: S70.02XA Contusion of left hip, initial encounter (principal); R42 Dizziness and giddiness; W01.0XXA Fall on same level from slipping, tripping and stumbling without subsequent striking against object, initial encounter
CPT/HCPCS: 0241U-QW; 36415; 70450-TC; 71045-TC-FY; 72170-TC-FY; 73502-TC-LT-FY; 73552-TC-LT-FY; 80053; 85025; 85610; 85730; 86850; 86900; 86901; 99285-25

== ENCOUNTER 2023-07-05 06:11 | Day surgery (SDC) | payer OTHER ==
[2023-06-29 11:40] VITALS: BMI 27.4
[2023-07-05] MEDS ORDERED: VANCOMYCIN 1,000 MG VIAL (RESTRICTED TO ID ONLY) ONE ×2 (07:18→09:58)
[2023-07-05] MEDS ORDERED: MIDAZOLAM HCL 2 MG/2 ML SINGLE DOSE VIAL ONE ×2 (07:23→09:29)
[2023-07-05] MEDS ORDERED: BUPIVACAINE HCL/PF 0.5% (5 MG/ML) 30 ML VIAL IJ ONE (07:24)
[2023-07-05] MEDS ORDERED: BUPIVACAINE LIPOSOME/PF (EXPAREL) 266 MG/20 ML VIAL ONE (07:24)
[2023-07-05] MEDS ORDERED: SCOPOLAMINE HYDROBROMIDE 1 PATCH PATCH.TD72 ONE (07:44)
[2023-07-05] MEDS ORDERED: CEFAZOLIN 2 GM in DEXTROSE 5%-WATER - 100 ML IVPB ONE (08:00)
[2023-07-05] MEDS ORDERED: BUPIVACAINE HCL/PF 0.5% (5MG/ML) 10 ML VIAL ONE (08:02)
[2023-07-05] MEDS ORDERED: TRANEXAMIC ACID 1000 MG/10 ML VIAL IVPUSH ONE (09:00)
[2023-07-05] MEDS ORDERED: BUPIVICAINE 0.25%/MORPH PF/KETOROLAC - 51ML DISP.SYRINGE IA ONE (09:26)
[2023-07-05] MEDS ORDERED: DEXAMETHASONE SOD PHOSPHATE 4 MG/1 ML VIAL ONE (09:58)
[2023-07-05] MEDS ORDERED: TRANEXAMIC ACID 1000 MG/10 ML VIAL ONE (09:58)
[2023-07-05] MEDS ORDERED: ceFAZolin SODIUM 1 GM VIAL ONE (09:58)
[2023-07-05] MEDS ORDERED: ONDANSETRON 4 MG/2 ML VIAL ONE (09:58)
[2023-07-05] MEDS ORDERED: ONDANSETRON 4 MG/2 ML VIAL IVPUSH PRN ×2 (10:28→11:28)
[2023-07-05] MEDS ORDERED: MAG HYDROX/AL HYDROX/SIMETH 30 ML UNIT-DOSE CUP PO PRN (10:28)
[2023-07-05] MEDS: ALBUTEROL SO4 0.083% IH SOL 2.5 MG/3 ML VIAL.NEB. NEB ONE ×2 (10:40→13:37)
[2023-07-05] MEDS ORDERED: ALBUTEROL SO4 0.083% IH SOL 2.5 MG/3 ML VIAL.NEB. NEB ONE (10:41)
[2023-07-05] MEDS ORDERED: oxyCODONE HCL 5 MG TABLET PO PRN (11:28)
[2023-07-05] MEDS ORDERED: LACTATED RINGERS SOLUTION 1,000 ML IV SCH (11:30)
[2023-07-05] MEDS: ACETAMINOPHEN 1000 MG/100 ML BAG IVPB ONE ×2 (11:45→13:36)
[2023-07-05] MEDS: SODIUM CHLORIDE 1,000 ML IV SCH (12:05)
[2023-07-05] MEDS ORDERED: ALBUTEROL SO4 HFA INHALER IH PRN (12:24)
[2023-07-05] MEDS: KETOROLAC TROMETHAMINE 30 MG/1 ML VIAL IVPUSH SCH ×2 (13:39→17:33)
[2023-07-05] MEDS: oxyCODONE HCL 5 MG TABLET PO PRN ×2 (15:47→21:43)
[2023-07-05] MEDS: ACETAMINOPHEN 500 MG TABLET (FP) PO SCH (16:39)
[2023-07-05] MEDS: CEFAZOLIN 1 GM in DEXTROSE 5%-WATER - 50 ML IVPB SCH ×2 (16:40→23:41)
[2023-07-05] MEDS ORDERED: ACETAMINOPHEN 500 MG TABLET (FP) PO SCH (18:00)
[2023-07-05] MEDS ORDERED: PRAMIPEXOLE DIHYDROCHLORIDE 0.25 MG TABLET PO SCH (18:30)
[2023-07-05] MEDS: SENNOSIDES/DOCUSATE COMBO (SENNA PLUS) TABLET (UD) PO SCH (21:42)
[2023-07-05] MEDS: GABAPENTIN 300 MG CAPSULE PO SCH (21:44)
[2023-07-05] MEDS: LISINOPRIL 20 MG TABLET PO SCH (21:46)
[2023-07-05] MEDS ORDERED: DOCUSATE SODIUM 100 MG CAPSULE (FP) PO SCH (22:00)
[2023-07-05] MEDS ORDERED: PATIENT'S OWN MEDICATION (NON-FORMULARY) (Famotidine 40 MG Tablet) PO SCH (22:00)
[2023-07-05] MEDS ORDERED: oxyCODONE HCL 10 MG SUSTAINED ACTING TABLET PO SCH (22:00)
[2023-07-05] MEDS ORDERED: PRAMIPEXOLE DIHYDROCHLORIDE 0.125 MG TABLET PO SCH (22:00)
[2023-07-05] MEDS ORDERED: MONTELUKAST NA 10 MG TABLET PO SCH (22:00)
[2023-07-05] MEDS ORDERED: DIVALPROEX NA *ER* EXTEND REL 250 MG TABLET.SA PO SCH (22:00)
[2023-07-06] MEDS: oxyCODONE HCL 5 MG TABLET PO PRN ×3 (04:47→13:19)
[2023-07-06] MEDS: ACETAMINOPHEN 500 MG TABLET (FP) PO SCH ×3 (04:48→15:55)
[2023-07-06] MEDS ORDERED: morphine CARPU-JECT 2 MG/1 ML DISP.SYRIN IVPUSH ONE (07:33)
[2023-07-06] MEDS ORDERED: KETOROLAC TROMETHAMINE 30 MG/1 ML VIAL IVPUSH ONE (07:35)
[2023-07-06 08:18] LABS: HEMATOCRIT 28.1 % (32.4-45.2); MCH 27.7 pg (25.7-33.7); MCHC 31.9 g/dl (32.0-36.0); MEAN CELL VOLUME 86.7 fl (80-96); MEAN PLT VOLUME 8.7 fl (7.5-11.1); PLATELET COUNT 219.3 10^3/uL (134-434); RBC 3.24 10^6/uL (3.60-5.2); RDW 14.9 % (11.6-15.6); WHITE BLOOD COUNT 9.2 10^3/uL (4.0-10.8)
[2023-07-06] MEDS ORDERED: PRAMIPEXOLE DIHYDROCHLORIDE 0.25 MG TABLET PO SCH (09:00)
[2023-07-06] MEDS: GABAPENTIN 300 MG CAPSULE PO SCH (09:23)
[2023-07-06] MEDS: LISINOPRIL 20 MG TABLET PO SCH (09:23)
[2023-07-06] MEDS: CEFAZOLIN 1 GM in DEXTROSE 5%-WATER - 50 ML IVPB SCH (09:28)
[2023-07-06 09:31] LABS: CREATININE 0.6 mg/dl (0.6-1.3); POTASSIUM 3.8 mmol/L (3.5-5.1)
[2023-07-06] MEDS: SODIUM CHLORIDE 1,000 ML IV SCH (09:51)
[2023-07-06] MEDS: SENNOSIDES/DOCUSATE COMBO (SENNA PLUS) TABLET (UD) PO SCH (09:51)
[2023-07-06] MEDS ORDERED: PATIENT'S OWN MEDICATION (NON-FORMULARY) (Umeclidinium Bromide [Incruse Ellipta] 62.5 MCG IN SCH (10:00)
[2023-07-06] MEDS ORDERED: LORATADINE 10 MG TABLET PO SCH (10:00)
[2023-07-06] MEDS ORDERED: ENOXAPARIN NA (PORCINE) 30 MG/0.3 ML DISP.SYRIN SQ SCH (10:00)
[2023-07-06] MEDS ORDERED: SENNOSIDES 8.6MG TABLET (FP) PO SCH (10:00)
[2023-07-06] MEDS ORDERED: PATIENT'S OWN MEDICATION (NON-FORMULARY) (Levocetirizine Dihydrochloride [Xyzal] 5 MG Tabl PO SCH (10:00)
[2023-07-06] MEDS ORDERED: [UNRECOGNIZED DRUG - REMARK] NS SCH (10:00)
[2023-07-06] MEDS ORDERED: BUDESONIDE/FORMETEROL FUMARATE 160/4.5 mcg INHALER IH SCH (10:00)
[2023-07-06] MEDS ORDERED: FLUTICASONE PROP 0.05% 16 GM NASAL SPRAY NS SCH (10:00)
[2023-07-06] MEDS ORDERED: PANTOPRAZOLE 40 MG TABLET PO SCH (10:00)
[2023-07-06] MEDS ORDERED: PATIENT'S OWN MEDICATION (NON-FORMULARY) (Fluticasone/Vilanterol 1 PUFF Each) IH SCH (10:00)
[2023-07-06] MEDS ORDERED: TIOTROPIUM BROMIDE 2.5 MCG (SPIRIVA) RESPIMAT INHALER IH SCH (10:00)
[2023-07-06] MEDS ORDERED: KETOROLAC TROMETHAMINE 30 MG/1 ML VIAL IVPUSH PRN (14:00)
[2023-07-06 16:27] VITALS: BP 212/50; PULSE 83; RESP 20; TEMP 98.5
[2023-07-07] MEDS ORDERED: HYDROCHLOROTHIAZIDE 12.5 MG CAPSULE (FP) PO SCH (10:00)
== END 2023-07-06 16:28 | disposition home or self-care (01) ==
LOC: SUATTDRO 06:11 → FASUSAT 06:11 → FM/S 10:30 → UNDOADMIN 10:35 → FM/S 10:35 → FASUSAT 07-06 16:28
PROVIDERS: ATTEND Internal Medicine
PROC: 8E0Y0CZ Robotic Assisted Procedure of Lower Extremity, Open Approach (ICD-10-PCS; 2023-07-05)
PROC: 0SRC0JA Replacement of Right Knee Joint with Synthetic Substitute, Uncemented, Open Approach (ICD-10-PCS; principal; 2023-07-05 08:47)
DX: M17.11 Unilateral primary osteoarthritis, right knee (principal)
CPT/HCPCS: 20985; 27447; C1776; S2900; 36415; 73560-TC-RT-FY; 80048; 85027; 94760; 97010-GP; 97116-GP; 97162-GP

== ENCOUNTER 2023-07-10 06:31 | Inpatient (IN) | payer OTHER ==
[2023-07-10 07:05] VITALS: BMI 32.3
[2023-07-10] MEDS ORDERED: ACETAMINOPHEN 1000 MG/100 ML BAG IVPB ONE (07:38)
[2023-07-10] MEDS: ALBUTEROL SO4 2.5/IPRATROPIUM 0.5 INH SOL 3 ML VIAL.NEB. NEB SCH ×3 (09:00→09:30)
[2023-07-10] MEDS ORDERED: ACETAMINOPHEN INJECTION 100 ML IVPB ONE (09:18)
[2023-07-10] MEDS ORDERED: ALBUTEROL SO4 2.5/IPRATROPIUM 0.5 INH SOL 3 ML VIAL.NEB. NEB ONE (09:18)
[2023-07-10 09:49] LABS: BASO % 0.4 % (0-2.0); EOS % 1.5 % (0-4.5); HEMATOCRIT 28.9 % (32.4-45.2); HEMOGLOBIN 9.5 GM/dL (10.7-15.3); LYMPH % 6.5 % (8-40); MCH 27.9 pg (25.7-33.7); MEAN CELL VOLUME 84.5 fl (80-96); MEAN PLT VOLUME 7.4 fl (7.5-11.1); MONO % 11.8 % (3.8-10.2); NEUT % 79.8 % (42.8-82.8); PLATELET COUNT 372 10^3/uL (134-434); RBC 3.42 M/mm3 (3.60-5.2); RDW 14.9 % (11.6-15.6); WHITE BLOOD COUNT 7.5 K/mm3 (4.0-10.0)
[2023-07-10 09:50] LABS: INR 0.99 (0.83-1.09); PROTHROMBIN TIME (PATIENT) 11.5 SEC (9.7-13.0)
[2023-07-10 09:53] LABS: ACTIVATED PTT 32.7 SECONDS (25.2-36.5)
[2023-07-10 10:00] LABS: POTASSIUM 4.4 mmol/L (3.5-5.1)
[2023-07-10 10:07] LABS: CALCIUM 8.9 mg/dL (8.5-10.1)
[2023-07-10] MEDS ORDERED: methylPREDNISolone NA SUCC 125 MG/2 ML VIAL IVPUSH ONE (10:07)
[2023-07-10 10:08] LABS: BLOOD UREA NITROGEN 10.8 mg/dL (7-18)
[2023-07-10 10:11] LABS: CREATININE 0.6 mg/dL (0.55-1.3)
[2023-07-10 10:12] LABS: BILIRUBIN,TOTAL 0.4 mg/dL (0.2-1)
[2023-07-10 10:14] LABS: TOT PROT 7.1 g/dl (6.4-8.2)
[2023-07-10 10:16] LABS: ALBUMIN 2.8 g/dl (3.4-5.0)
[2023-07-10] MEDS ORDERED: methylPREDNISolone NA SUCC 125 MG/2 ML VIAL ONE (10:25)
[2023-07-10] MEDS ORDERED: PIPERACILLIN/TAZOB 3.375 GM 3.375 GM/50 ML BAG IVPB ONE (14:45)
[2023-07-10] MEDS ORDERED: HYDROCHLOROTHIAZIDE 25 MG TABLET (FP) ONE (14:45)
[2023-07-10] MEDS: PIPERACILLIN/TAZOB 3.375 GM 3.375 GM in DEXTROSE 5%-WATER - 50 ML IVPB SCH (15:03)
[2023-07-10] MEDS: HYDROCHLOROTHIAZIDE 12.5 MG CAPSULE (FP) PO SCH (15:03)
[2023-07-10] MEDS: D5-1/2NS+20 MEQ KCL - 20 MEQ/1,000 ML INFUS.BAG IV SCH (15:19)
[2023-07-10] MEDS ORDERED: ONDANSETRON 4 MG/2 ML VIAL ONE (23:11)
[2023-07-10] MEDS ORDERED: HEPARIN NA (PORCINE) 5,000 UNITS/ML 1ML VIAL ONE (23:11)
[2023-07-10] MEDS: ONDANSETRON 4 MG/2 ML VIAL IVPUSH PRN (23:23)
[2023-07-10] MEDS: HEPARIN NA (PORCINE) 5,000 UNITS/ML 1ML VIAL SQ SCH (23:23)
[2023-07-11] MEDS: BUDESONIDE/FORMETEROL FUMARATE 160/4.5 mcg INHALER IH SCH ×3 (00:53→22:23)
[2023-07-11] MEDS ORDERED: MONTELUKAST NA 10 MG TABLET ONE (02:36)
[2023-07-11] MEDS ORDERED: DIVALPROEX NA *ER* EXTEND REL 250 MG TABLET.SA ONE (02:36)
[2023-07-11] MEDS ORDERED: LISINOPRIL 20 MG TABLET ONE (02:36)
[2023-07-11] MEDS ORDERED: PIPERACILLIN/TAZOB 3.375 GM 3.375 GM/50 ML BAG IVPB ONE ×2 (02:36→10:13)
[2023-07-11] MEDS ORDERED: OSELTAMIVIR PHOSPHATE 75 MG CAPSULE ONE (02:36)
[2023-07-11] MEDS ORDERED: FAMOTIDINE 20 MG TABLET ONE (02:36)
[2023-07-11] MEDS: DIVALPROEX NA *ER* EXTEND REL 250 MG TABLET.SA PO SCH ×2 (02:52→22:02)
[2023-07-11] MEDS: PIPERACILLIN/TAZOB 3.375 GM 3.375 GM in DEXTROSE 5%-WATER - 50 ML IVPB SCH ×2 (02:52→10:37)
[2023-07-11] MEDS: OSELTAMIVIR PHOSPHATE 75 MG CAPSULE PO SCH ×3 (02:52→22:02)
[2023-07-11] MEDS: LISINOPRIL 20 MG TABLET PO SCH ×3 (02:52→22:02)
[2023-07-11] MEDS: MONTELUKAST NA 10 MG TABLET PO SCH ×2 (02:52→22:02)
[2023-07-11] MEDS: PRAMIPEXOLE DIHYDROCHLORIDE 0.125 MG TABLET PO SCH ×3 (02:52→22:02)
[2023-07-11] MEDS: FAMOTIDINE 20 MG TABLET PO SCH ×3 (02:52→22:02)
[2023-07-11] MEDS ORDERED: guaiFENesin 200 MG/10 ML 10 ML UNIT-DOSE CUPS PO PRN (06:33)
[2023-07-11] MEDS ORDERED: ACETAMINOPHEN 325 MG TABLET (FP) PO ONE (06:33)
[2023-07-11 07:30] LABS: BASO % 0.3 % (0-2.0); HEMATOCRIT 27.4 % (32.4-45.2); HEMOGLOBIN 8.9 GM/dL (10.7-15.3); LYMPH % 12.8 % (8-40); MCH 27.6 pg (25.7-33.7); MCHC 32.5 g/dl (32.0-36.0); MEAN PLT VOLUME 9.2 fl (7.5-11.1); MONO % 16.7 % (3.8-10.2); NEUT % 70.2 % (42.8-82.8); PLATELET COUNT 217 10^3/uL (134-434); RBC 3.23 M/mm3 (3.60-5.2); RDW 15.1 % (11.6-15.6); WHITE BLOOD COUNT 6.6 K/mm3 (4.0-10.0)
[2023-07-11 07:36] LABS: POTASSIUM 4.6 mmol/L (3.5-5.1)
[2023-07-11 07:38] LABS: ALBUMIN 2.6 g/dl (3.4-5.0); BLOOD UREA NITROGEN 15.2 mg/dL (7-18); CALCIUM 8.4 mg/dL (8.5-10.1); MAGNESIUM 2.2 mg/dL (1.8-2.4)
[2023-07-11 07:41] LABS: CREATININE 0.5 mg/dL (0.55-1.3)
[2023-07-11 07:43] LABS: BILIRUBIN,TOTAL 0.2 mg/dL (0.2-1); TOT PROT 6.6 g/dl (6.4-8.2)
[2023-07-11] MEDS: LORATADINE 10 MG TABLET PO SCH (10:35)
[2023-07-11] MEDS: HEPARIN NA (PORCINE) 5,000 UNITS/ML 1ML VIAL SQ SCH ×2 (10:36→22:02)
[2023-07-11] MEDS: SENNOSIDES 8.6MG TABLET (FP) PO SCH (10:37)
[2023-07-11] MEDS ORDERED: oxyCODONE HCL 5 MG TABLET ONE (11:50)
[2023-07-11] MEDS: oxyCODONE HCL 5 MG TABLET PO PRN (11:56)
[2023-07-11] MEDS ORDERED: ENOXAPARIN NA (PORCINE) 30 MG/0.3 ML DISP.SYRIN SQ SCH (13:30)
[2023-07-11] MEDS: D5-1/2NS+20 MEQ KCL - 20 MEQ/1,000 ML INFUS.BAG IV SCH (14:39)
[2023-07-11] MEDS ORDERED: IRON SUCROSE INJECTION 200 MG in SODIUM CHLORIDE 90 ML IVPB ONE (17:00)
[2023-07-11] MEDS: POLYETHYLENE GLYCOL (HEALTHYLAX) 3350 17 GM PACKET PO SCH ×2 (17:28→22:02)
[2023-07-12] MEDS: POLYETHYLENE GLYCOL (HEALTHYLAX) 3350 17 GM PACKET PO SCH ×3 (05:20→22:12)
[2023-07-12] MEDS: D5-1/2NS+20 MEQ KCL - 20 MEQ/1,000 ML INFUS.BAG IV SCH ×2 (05:20→18:42)
[2023-07-12] MEDS: ONDANSETRON 4 MG/2 ML VIAL IVPUSH PRN (09:36)
[2023-07-12] MEDS: oxyCODONE HCL 5 MG TABLET PO PRN (09:36)
[2023-07-12] MEDS: HYDROCHLOROTHIAZIDE 12.5 MG CAPSULE (FP) PO SCH (09:37)
[2023-07-12] MEDS: LORATADINE 10 MG TABLET PO SCH (09:37)
[2023-07-12] MEDS: HEPARIN NA (PORCINE) 5,000 UNITS/ML 1ML VIAL SQ SCH ×2 (09:37→22:12)
[2023-07-12] MEDS: SENNOSIDES 8.6MG TABLET (FP) PO SCH (09:37)
[2023-07-12] MEDS: PRAMIPEXOLE DIHYDROCHLORIDE 0.125 MG TABLET PO SCH ×2 (09:37→22:11)
[2023-07-12] MEDS: FAMOTIDINE 20 MG TABLET PO SCH ×2 (09:37→22:10)
[2023-07-12] MEDS: OSELTAMIVIR PHOSPHATE 75 MG CAPSULE PO SCH ×2 (09:38→22:11)
[2023-07-12] MEDS: LISINOPRIL 20 MG TABLET PO SCH ×2 (09:38→22:11)
[2023-07-12] MEDS: BUDESONIDE/FORMETEROL FUMARATE 160/4.5 mcg INHALER IH SCH ×2 (09:38→22:12)
[2023-07-12] MEDS: PIPERACILLIN/TAZOB 3.375 GM 3.375 GM in DEXTROSE 5%-WATER - 50 ML IVPB SCH ×3 (10:55→11:09)
[2023-07-12 11:26] LABS: BASO % 0.6 % (0-2.0); EOS % 2.7 % (0-4.5); HEMATOCRIT 26.6 % (32.4-45.2); HEMOGLOBIN 8.6 GM/dL (10.7-15.3); LYMPH % 12.5 % (8-40); MCH 27.5 pg (25.7-33.7); MCHC 32.3 g/dl (32.0-36.0); MEAN CELL VOLUME 85.2 fl (80-96); MEAN PLT VOLUME 7.2 fl (7.5-11.1); MONO % 16.1 % (3.8-10.2); NEUT % 68.1 % (42.8-82.8); PLATELET COUNT 489 10^3/uL (134-434); RBC 3.12 M/mm3 (3.60-5.2); WHITE BLOOD COUNT 5.9 K/mm3 (4.0-10.0)
[2023-07-12] MEDS: MONTELUKAST NA 10 MG TABLET PO SCH (22:11)
[2023-07-12] MEDS: DIVALPROEX NA *ER* EXTEND REL 250 MG TABLET.SA PO SCH (22:11)
[2023-07-13] MEDS: oxyCODONE HCL 5 MG TABLET PO PRN (02:10)
[2023-07-13] MEDS: POLYETHYLENE GLYCOL (HEALTHYLAX) 3350 17 GM PACKET PO SCH ×2 (06:27→15:02)
[2023-07-13] MEDS: D5-1/2NS+20 MEQ KCL - 20 MEQ/1,000 ML INFUS.BAG IV SCH ×2 (06:27→15:00)
[2023-07-13 08:21] LABS: HEMOGLOBIN 9.3 GM/dL (10.7-15.3); MCH 27.2 pg (25.7-33.7); MCHC 32.1 g/dl (32.0-36.0); MEAN CELL VOLUME 84.8 fl (80-96); MEAN PLT VOLUME 6.9 fl (7.5-11.1); PLATELET COUNT 543 10^3/uL (134-434); RBC 3.42 M/mm3 (3.60-5.2); RDW 15.3 % (11.6-15.6); WHITE BLOOD COUNT 5.9 K/mm3 (4.0-10.0)
[2023-07-13 08:41] LABS: POTASSIUM 4.8 mmol/L (3.5-5.1)
[2023-07-13 08:45] LABS: CALCIUM 8.7 mg/dL (8.5-10.1)
[2023-07-13 08:46] LABS: BLOOD UREA NITROGEN 9.7 mg/dL (7-18); MAGNESIUM 2.2 mg/dL (1.8-2.4)
[2023-07-13 08:49] LABS: CREATININE 0.6 mg/dL (0.55-1.3)
[2023-07-13] MEDS: HEPARIN NA (PORCINE) 5,000 UNITS/ML 1ML VIAL SQ SCH (09:17)
[2023-07-13] MEDS: LISINOPRIL 20 MG TABLET PO SCH (09:18)
[2023-07-13] MEDS: LORATADINE 10 MG TABLET PO SCH (09:18)
[2023-07-13] MEDS: PRAMIPEXOLE DIHYDROCHLORIDE 0.125 MG TABLET PO SCH (09:18)
[2023-07-13] MEDS: SENNOSIDES 8.6MG TABLET (FP) PO SCH (09:18)
[2023-07-13] MEDS: OSELTAMIVIR PHOSPHATE 75 MG CAPSULE PO SCH (09:18)
[2023-07-13] MEDS: FAMOTIDINE 20 MG TABLET PO SCH (09:18)
[2023-07-13] MEDS: BUDESONIDE/FORMETEROL FUMARATE 160/4.5 mcg INHALER IH SCH (09:19)
[2023-07-13 13:08] VITALS: BP 119/63; PULSE 63; RESP 16; TEMP 98.5
== END 2023-07-13 16:10 | DRG 194 ==
LOC: JER 06:31 → JERBED 13:54 → J4S 07-11 15:42
PROVIDERS: ADMIT Family Medicine; ATTEND Family Medicine
DX: J10.1 Influenza due to other identified influenza virus with other respiratory manifestations (principal); K92.0 Hematemesis; I10 Essential (primary) hypertension; K21.9 Gastro-esophageal reflux disease without esophagitis; Z86.711 Personal history of pulmonary embolism; J45.909 Unspecified asthma, uncomplicated; G43.909 Migraine, unspecified, not intractable, without status migrainosus; G25.81 Restless legs syndrome; Z95.9 Presence of cardiac and vascular implant and graft, unspecified
CPT/HCPCS: 0241U-QW; 36415; 71045-TC-FY; 74177-TC; 80048; 80053; 82728; 83036; 83540; 83550; 83605; 83735; 84443; 84484; 85025; 85027; 85610; 85730; 86850; 86900; 86901; 87040; 93005; 93010; 94010; 94761; 97116-GP; 97161-GP; 99285-25; J0131; J1644; J1756; Q9967